=== PATIENT | female | born 1980 | race African-American/Black ===

== ENCOUNTER 2017-10-09 23:49 | Inpatient (IN) | payer OTHER ==
[~2017-10-09] VITALS: Ht 170.2 cm; Wt 69.9 kg
[~2017-10-09 23:49] MED LIST: BACTRIM DS TAB1 EAC1 ORAL; IBUPROFEN600 MG ORAL; NITROFURANTOIN100 M2 ORAL; NKM; NORCO 5-325 TA1 EACH PO; ONDANSETRON ODT4 MG ORAL; PRENAT; SLOW FE142 MG PO; VICODIN 5-5001 EACH PO
[2017-10-10] VITALS (9 sets, daily range): BP systolic 107–130; BP diastolic 72–92
[2017-10-10] MEDS ORDERED: Sodium Chloride 500ML 500 ML IV ONE (00:12)
[2017-10-10] MEDS ORDERED: levETIRAcetam 500 MG in D5W 110 ML IV ONE (00:15)
[2017-10-10 00:26] LABS: HEMATOCRIT 29.4 % (37.0-47.0); HEMOGLOBIN 8.8 G/DL (12.0-16.0); MEAN CORPUSCULAR VOLUME 75 FL (80-99); PLATELET COUNT 321 K/UL (150-450); RED BLOOD COUNT 3.93 M/UL (4.20-5.40); RED CELL DISTRIBUTION WIDTH 21.4 % (11.6-14.8); WHITE BLOOD COUNT 2.8 K/UL (4.8-10.8)
[2017-10-10 00:34] LABS: ANION GAP 11 mmol/L (5-15); BLOOD UREA NITROGEN 12 mg/dL (7-18); CALCIUM 8.3 MG/DL (8.5-10.1); CARBON DIOXIDE 24 MMOL/L (21-32); CHLORIDE 103 MMOL/L (98-107); CREATININE 0.7 MG/DL (0.55-1.30); POTASSIUM 3.1 MMOL/L (3.5-5.1); SODIUM 138 MMOL/L (136-145)
[2017-10-10 00:38] LABS: ALANINE AMINOTRANSFERASE 158 U/L (12-78); ALBUMIN 3.1 G/DL (3.4-5.0); ALBUMIN/GLOBULIN RATIO 0.7 (1.0-2.7); ALKALINE PHOSPHATASE 172 U/L (46-116); ASPARTATE AMINO TRANSFERASE 149 U/L (15-37); BILIRUBIN,TOTAL 0.3 MG/DL (0.2-1.0)
[2017-10-10] MEDS ORDERED: levETIRAcetam 500mg vial IV ONE (00:50)
[2017-10-10 01:36] LABS: APPEARANCE,URINE CLEAR; BILIRUBIN, URINE NEGATIVE (NEGATIVE); COLOR,URINE YELLOW; GLUCOSE, URINE (UA) NEGATIVE (NEGATIVE); KETONES,URINE NEGATIVE (NEGATIVE); LEUKOCYTE ESTERASE ,URINE NEGATIVE (NEGATIVE); NITRITE,URINE NEGATIVE (NEGATIVE); PH,URINE 6 (4.5-8.0); PROTEIN,URINE NEGATIVE (NEGATIVE); UROBILINOGEN,URINE 1 MG/DL (0.0-1.0)
--- NOTE | 2017-10-10 02:47 | Emergency Room Report ---
History of Present Illness General Chief Complaint: Seizure Source: Patient Present Illness HPI 36-year-old female presents to ED status post seizure. Patient had seizure on the street today. Bus stop. Witnessed. No head trauma. Patient has history of seizures and states she takes Keppra. Patient is lethargic upon arrival but is answer questions. States she is compliant with her medications. Denies any other medications. Denies any drug use. No other aggravating or relieving factors. Denies any other associated symptoms Allergies: Coded Allergies: TRAMADOL (Unverified Allergy, Unknown, 03/25/15) Uncoded Allergies: MORPHINE SULFATE (Adverse Reaction, Unknown, Hives, 10/12/17) ITCHING AND HIVES Patient History Past Medical History: seizures Past Surgical History: none Pertinent Family History: none Social History: Denies: smoking, alcohol use, drug use Last Menstrual Period: unk Now: No Immunizations: UTD Reviewed Nursing Documentation: PMH: Agreed, PSxH: Agreed Nursing Documentation-PMH Past Medical History: No History, Except For Hx Cardiac Problems: No Hx Cancer: No Hx Gastrointestinal Problems: Yes - Pancreatitis Hx Neurological Problems: No Hx Seizures: Yes Review of Systems All Other Systems: negative except mentioned in HPI Physical Exam Vital Signs Date Time Temp Pulse Resp B/P (MAP) Pulse Ox O2 Delivery O2 Flow Rate FiO2 10/09/17 23:50 98.2 115 16 122/72 97 Room Air Sp02 EP Interpretation: reviewed, normal General Appearance: GCS 15, non-toxic, lethargic Head: normocephalic Eyes: bilateral eye normal inspection, bilateral eye PERRL ENT: normal ENT inspection Neck: normal inspection Respiratory: chest non-tender, lungs clear, normal breath sounds, speaking full sentences Cardiovascular #1: regular rate, rhythm, no edema Gastrointestinal: normal bowel sounds, non tender, soft, non-distended, no guarding, no rebound Rectal: deferred Genitourinary: no CVA tenderness Musculoskeletal: normal inspection Neurologic: other - lethargic Psychiatric: other - lethargic Skin: normal inspection Lymphatic: normal inspection Medical Decision Making Diagnostic Impression: Primary Impression: Seizure ER Course Hospital Course 36-year-old F presents to ED status post seizure. Differential diagnosis includes- breakthrough seizure, alcohol abuse, noncompliance with medication Clinical course Patient placed on stretcher. Initial history and physical I ordered labs, IV fluids, CT brain Labs-electrolytes okay, leukocytosis noted, hemoglobin/hematocrit stable. CT Brain ok Given loading dose of Keppra. Given that patient is still altered I believe she should be admitted. Case discussed with Dr. Erazo and he agreed to accept the patient to his service for further care and support. i. I feel this is a highly complex case requiring extensive working including EKG/Rhythm strip, Xray/CT/US, Blood/urine lab work, repeat exams while in ED, and administration of strong opiates/narcotics for pain control, admission to hospital or close patient follow up. Diagnosis - seizure admitted to telemetry in serious condition Labs Test 10/10/17 00:00 10/10/17 01:00 White Blood Count 2.8 K/UL (4.8-10.8) Red Blood Count 3.93 M/UL (4.20-5.40) Hemoglobin 8.8 G/DL (12.0-16.0) Hematocrit 29.4 % (37.0-47.0) Mean Corpuscular Volume 75 FL (80-99) Mean Corpuscular Hemoglobin 22.4 PG (27.0-31.0) Mean Corpuscular Hemoglobin Concent 30.0 G/DL (32.0-36.0) Red Cell Distribution Width 21.4 % (11.6-14.8) Platelet Count 321 K/UL (150-450) Mean Platelet Volume 7.2 FL (6.5-10.1) Neutrophils (%) (Auto) % (45.0-75.0) Lymphocytes (%) (Auto) % (20.0-45.0) Monocytes (%) (Auto) % (1.0-10.0) Eosinophils (%) (Auto) % (0.0-3.0) Basophils (%) (Auto) % (0.0-2.0) Sodium Level 138 MMOL/L (136-145) Potassium Level 3.1 MMOL/L (3.5-5.1) Chloride Level 103 MMOL/L (98-107) Carbon Dioxide Level 24 MMOL/L (21-32) Anion Gap 11 mmol/L (5-15) Blood Urea Nitrogen 12 mg/dL (7-18) Creatinine 0.7 MG/DL (0.55-1.30) Estimat Glomerular Filtration Rate > 60 mL/min (>60) Glucose Level 126 MG/DL (74-106) Calcium Level 8.3 MG/DL (8.5-10.1) Total Bilirubin 0.3 MG/DL (0.2-1.0) Aspartate Amino Transf (AST/SGOT) 149 U/L (15-37) Alanine Aminotransferase (ALT/SGPT) 158 U/L (12-78) Alkaline Phosphatase 172 U/L (46-116) Total Protein 7.5 G/DL (6.4-8.2) Albumin 3.1 G/DL (3.4-5.0) Globulin 4.4 g/dL Albumin/Globulin Ratio 0.7 (1.0-2.7) Acetaminophen Level 23 MCG/ML (10-30) Serum Alcohol < 3 mg/dL Urine Color Yellow Urine Appearance Clear Urine pH 6 (4.5-8.0) Urine Specific [place] 1.020 (1.005-1.035) Urine Protein Negative (NEGATIVE) Urine Glucose (UA) Negative (NEGATIVE) Urine Ketones Negative (NEGATIVE) Urine Occult Blood Negative (NEGATIVE) Urine Nitrite Negative (NEGATIVE) Urine Bilirubin Negative (NEGATIVE) Urine Urobilinogen 1 MG/DL (0.0-1.0) Urine Leukocyte Esterase Negative (NEGATIVE) Urine HCG, Qualitative Negative Urine Opiates Screen Positive (NEGATIVE) Urine Barbiturates Screen Negative (NEGATIVE) Phencyclidine (PCP) Screen Negative (NEGATIVE) Urine Amphetamines Screen Negative (NEGATIVE) Urine Benzodiazepines Screen Negative (NEGATIVE) Urine Cocaine Screen Negative (NEGATIVE) Urine Marijuana (THC) Screen Positive (NEGATIVE) CT/MRI/US Diagnostic Results CT/MRI/US Diagnostic Results : Imaging Test Ordered: CT Head Impression no acute process Last Vital Signs Date Time Temp Pulse Resp B/P (MAP) Pulse Ox O2 Delivery O2 Flow Rate FiO2 10/09/17 23:50 98.2 115 16 122/72 97 Room Air Status: improved Disposition: ADMITTED INPATIENT Condition: Serious Referrals: [facility],REFERRING (PCP) ETHEL MAYA M.D. Oct 10, 2017 02:47
[2017-10-10] MEDS ORDERED: KEPPRA500 M4 ORAL (07:15)
[2017-10-10] MEDS ORDERED: Zolpidem 5mg tab ORAL PRN (09:00)
[2017-10-10] MEDS ORDERED: Miralax 17gm pkt ORAL PRN (09:00)
[2017-10-10] MEDS ORDERED: Mylanta II UD 30ml ORAL PRN (09:00)
[2017-10-10] MEDS ORDERED: LORazepam Inj 2mg/ml 1ml IV PRN (09:00)
--- NOTE | 2017-10-10 11:21 | Consultation ---
History of Present Illness General Date patient seen: Oct 10, 2017 Chief Complaint: Seizure Reason for Consultation: inpatient management Present Illness HPI 36-year-old female with hx of seizures, on Keppra presented to ED status post seizure. Patient had witnessed seizure on the street today at a bus stop. No head trauma. Patient was lethargic upon arrival in ER. States she is compliant with her medications. Denies any other medications. she is admitted to telemetry for further treatment. Allergies: Coded Allergies: TRAMADOL (Unverified Allergy, Unknown, 03/25/15) MORPHINE (Verified Adverse Reaction, Severe, NAUSEA/VOMITING, 05/16/12) Medication History Miscellaneous Medications Levetiracetam (Keppra), Unknown Dose ORAL, (Reported) Discontinued Medications Ferrous Sulfate* (Slow Fe*), 90 MG PO DAILY, (Reported) Discontinued Reason: Pt stopped taking med No Known Medications* (NKM - No Known Medications*), 0 ., (Reported) Discontinued Reason: Pt stopped taking med [prenat], (Reported) Discontinued Reason: Pt stopped taking med Patient History Healthcare decision maker Resuscitation status Advanced Directive on File Past Medical/Surgical History Past Medical/Surgical History: (1) Seizure Review of Systems Hematologic/Lymphatic: Reports: no symptoms Physical Exam General Appearance: WD/WN Lines, tubes and drains: central line, PICC HEENT: normocephalic, atraumatic Neck: non-tender, abnormal alignment Respiratory/Chest: chest wall non-tender, lungs clear Cardiovascular/Chest: normal peripheral pulses, normal rate Abdomen: normal bowel sounds Genitourinary/Rectal: normal genital exam Last 24 Hour Vital Signs Date Time Temp Pulse Resp B/P (MAP) Pulse Ox O2 Delivery O2 Flow Rate FiO2 10/10/17 09:00 97.3 87 18 129/76 95 Room Air 10/10/17 08:30 98.6 93 17 107/72 98 Room Air 10/10/17 07:27 98.6 93 17 107/72 98 Room Air 10/10/17 06:10 80 19 121/73 97 Room Air 10/10/17 04:10 81 18 119/81 97 Room Air 10/10/17 02:10 76 15 125/92 98 Room Air 10/10/17 00:10 115 16 Room Air 10/10/17 00:10 98.2 115 16 122/72 97 Room Air 10/09/17 23:50 98.2 115 16 122/72 97 Room Air Intake and Output 10/09/17 10/10/17 19:00 07:00 Intake Total 615 ml Balance 615 ml Intake Oral 0 ml IV Total 615 ml Laboratory Tests Test 10/10/17 00:00 10/10/17 01:00 White Blood Count 2.8 K/UL (4.8-10.8) L Red Blood Count 3.93 M/UL (4.20-5.40) L Hemoglobin 8.8 G/DL (12.0-16.0) L Hematocrit 29.4 % (37.0-47.0) L Mean Corpuscular Volume 75 FL (80-99) L Mean Corpuscular Hemoglobin 22.4 PG (27.0-31.0) L Mean Corpuscular Hemoglobin Concent 30.0 G/DL (32.0-36.0) L Red Cell Distribution Width 21.4 % (11.6-14.8) H Platelet Count 321 K/UL (150-450) Mean Platelet Volume 7.2 FL (6.5-10.1) Neutrophils (%) (Auto) % (45.0-75.0) Lymphocytes (%) (Auto) % (20.0-45.0) Monocytes (%) (Auto) % (1.0-10.0) Eosinophils (%) (Auto) % (0.0-3.0) Basophils (%) (Auto) % (0.0-2.0) Sodium Level 138 MMOL/L (136-145) Potassium Level 3.1 MMOL/L (3.5-5.1) L Chloride Level 103 MMOL/L (98-107) Carbon Dioxide Level 24 MMOL/L (21-32) Anion Gap 11 mmol/L (5-15) Blood Urea Nitrogen 12 mg/dL (7-18) Creatinine 0.7 MG/DL (0.55-1.30) Estimat Glomerular Filtration Rate > 60 mL/min (>60) Glucose Level 126 MG/DL (74-106) H Calcium Level 8.3 MG/DL (8.5-10.1) L Total Bilirubin 0.3 MG/DL (0.2-1.0) Aspartate Amino Transf (AST/SGOT) 149 U/L (15-37) H Alanine Aminotransferase (ALT/SGPT) 158 U/L (12-78) H Alkaline Phosphatase 172 U/L (46-116) H Total Protein 7.5 G/DL (6.4-8.2) Albumin 3.1 G/DL (3.4-5.0) L Globulin 4.4 g/dL Albumin/Globulin Ratio 0.7 (1.0-2.7) L Acetaminophen Level 23 MCG/ML (10-30) Serum Alcohol < 3 mg/dL Urine Color Yellow Urine Appearance Clear Urine pH 6 (4.5-8.0) Urine Specific [place] 1.020 (1.005-1.035) Urine Protein Negative (NEGATIVE) Urine Glucose (UA) Negative (NEGATIVE) Urine Ketones Negative (NEGATIVE) Urine Occult Blood Negative (NEGATIVE) Urine Nitrite Negative (NEGATIVE) Urine Bilirubin Negative (NEGATIVE) Urine Urobilinogen 1 MG/DL (0.0-1.0) H Urine Leukocyte Esterase Negative (NEGATIVE) Urine HCG, Qualitative Negative Urine Opiates Screen Positive (NEGATIVE) H Urine Barbiturates Screen Negative (NEGATIVE) Phencyclidine (PCP) Screen Negative (NEGATIVE) Urine Amphetamines Screen Negative (NEGATIVE) Urine Benzodiazepines Screen Negative (NEGATIVE) Urine Cocaine Screen Negative (NEGATIVE) Urine Marijuana (THC) Screen Positive (NEGATIVE) H Height (Feet): 5 Height (Inches): 7.00 Weight (Pounds): 130 Medications Current Medications Medications (Trade) Dose Ordered Sig/Sawyer Route PRN Reason Start Time Stop Time Status Last Admin Dose Admin Acetaminophen (Tylenol) 650 mg Q4H PRN ORAL fever 10/10/17 09:00 11/09/17 08:59 Al Hydroxide/Mg Hydroxide (Mylanta II) 30 ml Q6H PRN ORAL dyspepsia 10/10/17 09:00 11/09/17 08:59 Dextrose (Dextrose 50%) STAT PRN IV Hypoglycemia 10/10/17 09:00 11/09/17 08:59 Heparin Sodium (Porcine) (Heparin 5000 units/ml) 5,000 units EVERY 12 HOURS SUBQ 10/10/17 10:00 11/09/17 09:59 Lorazepam (Ativan 2mg/ml 1ml) 2 mg EVERY HOUR PRN IV seizures 10/10/17 09:00 10/17/17 08:59 Ondansetron HCl (Zofran) 4 mg Q6H PRN IVP Nausea & Vomiting 10/10/17 09:00 11/09/17 08:59 Polyethylene Glycol (Miralax) 17 gm HSPRN PRN ORAL Constipation 10/10/17 09:00 11/09/17 08:59 Zolpidem Tartrate (Ambien) 5 mg HSPRN PRN ORAL Insomnia 10/10/17 09:00 10/17/17 08:59 Assessment/Plan Problem List: (1) Epileptic seizure, generalized ICD Codes: G40.909 - Epilepsy, unspecified, not intractable, without status epilepticus SNOMED: 04869404 (2) Anemia ICD Codes: D64.9 - Anemia, unspecified SNOMED: 159638512 Assessment/Plan symptomatic treatment Neuro evaluation anemia w/u. STACI ESTRADA Oct 10, 2017 11:21
[2017-10-10] MEDS: Heparin 5000 units/ml inj SUBQ SCH ×2 (11:50→20:52)
--- NOTE | 2017-10-10 12:12 | Neurology Progress Note ---
Objective Physical Exam Last Vital Signs Date Time Temp Pulse Resp B/P (MAP) Pulse Ox O2 Delivery O2 Flow Rate FiO2 10/10/17 09:00 97.3 87 18 129/76 95 Room Air Laboratory Tests Test 10/10/17 00:00 10/10/17 01:00 White Blood Count 2.8 K/UL (4.8-10.8) L Red Blood Count 3.93 M/UL (4.20-5.40) L Hemoglobin 8.8 G/DL (12.0-16.0) L Hematocrit 29.4 % (37.0-47.0) L Mean Corpuscular Volume 75 FL (80-99) L Mean Corpuscular Hemoglobin 22.4 PG (27.0-31.0) L Mean Corpuscular Hemoglobin Concent 30.0 G/DL (32.0-36.0) L Red Cell Distribution Width 21.4 % (11.6-14.8) H Platelet Count 321 K/UL (150-450) Mean Platelet Volume 7.2 FL (6.5-10.1) Neutrophils (%) (Auto) % (45.0-75.0) Lymphocytes (%) (Auto) % (20.0-45.0) Monocytes (%) (Auto) % (1.0-10.0) Eosinophils (%) (Auto) % (0.0-3.0) Basophils (%) (Auto) % (0.0-2.0) Sodium Level 138 MMOL/L (136-145) Potassium Level 3.1 MMOL/L (3.5-5.1) L Chloride Level 103 MMOL/L (98-107) Carbon Dioxide Level 24 MMOL/L (21-32) Anion Gap 11 mmol/L (5-15) Blood Urea Nitrogen 12 mg/dL (7-18) Creatinine 0.7 MG/DL (0.55-1.30) Estimat Glomerular Filtration Rate > 60 mL/min (>60) Glucose Level 126 MG/DL (74-106) H Calcium Level 8.3 MG/DL (8.5-10.1) L Total Bilirubin 0.3 MG/DL (0.2-1.0) Aspartate Amino Transf (AST/SGOT) 149 U/L (15-37) H Alanine Aminotransferase (ALT/SGPT) 158 U/L (12-78) H Alkaline Phosphatase 172 U/L (46-116) H Total Protein 7.5 G/DL (6.4-8.2) Albumin 3.1 G/DL (3.4-5.0) L Globulin 4.4 g/dL Albumin/Globulin Ratio 0.7 (1.0-2.7) L Acetaminophen Level 23 MCG/ML (10-30) Serum Alcohol < 3 mg/dL Urine Color Yellow Urine Appearance Clear Urine pH 6 (4.5-8.0) Urine Specific [place] 1.020 (1.005-1.035) Urine Protein Negative (NEGATIVE) Urine Glucose (UA) Negative (NEGATIVE) Urine Ketones Negative (NEGATIVE) Urine Occult Blood Negative (NEGATIVE) Urine Nitrite Negative (NEGATIVE) Urine Bilirubin Negative (NEGATIVE) Urine Urobilinogen 1 MG/DL (0.0-1.0) H Urine Leukocyte Esterase Negative (NEGATIVE) Urine HCG, Qualitative Negative Urine Opiates Screen Positive (NEGATIVE) H Urine Barbiturates Screen Negative (NEGATIVE) Phencyclidine (PCP) Screen Negative (NEGATIVE) Urine Amphetamines Screen Negative (NEGATIVE) Urine Benzodiazepines Screen Negative (NEGATIVE) Urine Cocaine Screen Negative (NEGATIVE) Urine Marijuana (THC) Screen Positive (NEGATIVE) H Impression/Recommendations Recommendations #[id number] ELDON REGALADO Oct 10, 2017 12:12
--- NOTE | 2017-10-10 12:15 | Diagnostic Imaging Report ---
Indication: Reason For Exam: AMS Technique: Continuous helical CT scanning of the head was performed without intravenous contrast material. Axial and coronal 5 mm sections were generated. Radiation dose was minimized using automated exposure control Dose: Total Dose Length Product - DLP 1340.[address] Dose Index - CTDIvol(s) 70.38 mGy. Comparison: Findings: The ventricular system is normal in size and configuration. There is no shift of midline structures. No abnormal extra-axial fluid collections are noted. There is no evidence of intracerebral bleeding. No other abnormal high or low density areas are noted within the brain. Intact calvarium. The orbits and sinuses and mastoids are unremarkable. Impression: Normal CT scan of the head without contrast material. This agrees with the preliminary interpretation provided overnight by [facility] teleradiology service. The CT scanner at [facility] is accredited by the [employer] and the scans are performed using protocols designed to limit radiation exposure to as low as reasonably achievable to attain images of sufficient resolution adequate for diagnostic evaluation.
--- NOTE | 2017-10-10 17:30 | Consultation ---
DATE OF CONSULTATION: 10/10/2017 NEUROLOGICAL CONSULTATION CONSULTING PHYSICIAN: Drew Laboy M.D. REQUESTING PHYSICIAN: Stephan Erazo D.O. HISTORY OF PRESENT ILLNESS: The patient is a 36-year-old female, seen in neurological consultation to evaluate the exacerbation of seizures. According to the patient, the patient is known to have a chronic seizure disorder since approximately 2012, cause of the seizures never was established. The patient was now brought to emergency room after she was found to be seizing on a street at the bus stop. This was witnessed. She was brought by paramedics being lethargic, able to answer some questions. The patient insisted that she was compliant with her treatment. Her vital signs were stable, blood pressure 122/72, temperature 98.2 degrees, [place] Coma Scale was 15. Her initial laboratory studies included anemia with WBC 2.8, hemoglobin 8.8, low MCV and MCH. Chemistry panel, abnormal AST 139, ALT 158, and alkaline phosphatase is 172. Albumin 3.1. Elevated blood sugar 126 and potassium 3.1. Toxicology panel positive for marijuana and opiates and alcohol. Since admission until present, there was no further seizure activity. The patient's previous assessment in this facility was in 2015 when she also presented with exacerbation of seizures. At that time, the patient was on Keppra, Depakote, and Dilantin with her Depakote and Dilantin being subtherapeutic, which presumed to be presented with noncompliance. The patient now informs me that she has a history of alcohol abuse, which resulted in hepatitis and chronic pancreatitis. She developed chronic pain syndrome, opiate dependent, currently maintained on [place], oxycodone, and supplements of folate. She is on Keppra 1500 mg b.i.d. ALLERGIES: Morphine and tramadol. SOCIAL HISTORY: Now lives with her father. She is a smoker, but no illicit drug abuse. She is on social security, on disability. FAMILY HISTORY: Unavailable. REVIEW OF SYMPTOMS: Severe abdominal pain, generalized weakness. Denies headache or dizziness. No chest pain. No palpitations. No respiratory difficulties. Chronic severe low back pain. PHYSICAL EXAMINATION: GENERAL: A well-developed, well-nourished female, lying comfortably in bed, in mild distress indicating that she has pain in the right lower quadrant area. EXTREMITIES: Upper and lower extremities without clubbing, cyanosis, or edema. Peripheral pulses 1+ symmetric. MENTAL STATUS: She is alert and oriented x3. No evidence of aphasia or apraxia. Cognitive function normal. She is slow in responses, but repeatedly asked "give me something for the pain." CRANIAL NERVE II: Pupils both responding to light and accommodation. Extraocular movements intact. No nystagmus. CRANIAL NERVE V: Normal corneal responses. CRANIAL NERVE VII: No facial asymmetry. CRANIAL NERVE VIII: Normal hearing. CRANIAL NERVE IX THROUGH XII: Within normal limits. MOTOR EXAMINATION: Normal muscle tone. Strength 5/5 in all extremities. No involuntary movement. Deep tendon reflexes 1+ and symmetric with downgoing toes on both sides. SENSORY EXAM: Normal to pinprick. Gait not tested, but reportedly able to ambulate without assistance. IMPRESSION: 1. Chronic seizure disorder exacerbation. 2. Chronic pain syndrome, opiate dependent. 3. History of alcohol abuse. 4. Alcohol related hepatitis and chronic pancreatitis. RECOMMENDATION: 1. Pain management to address the issue of opiates. 2. Maintain Keppra 1500 mg b.i.d. Check level to assess compliance. If necessary, we will add additional anticonvulsant (not Depakote due to hepatotoxicity). 3. We will follow with you. Thank you for allowing me to see this interesting patient in neurological consultation. Drew Laboy M.D. DR: DEANNA JOB#: [id number] CC:
--- NOTE | 2017-10-10 19:31 | History and Physical Report ---
DATE OF ADMISSION: 10/10/2017 TIME: 1 p.m. CONSULTANTS: 1. Isaias Marie M.D. 2. Drew Laboy M.D. 3. Jason Mcgill M.D. CHIEF COMPLAINT: Seizure and abdominal pain postictal. BRIEF HISTORY: This is a 36-year-old female who lives at home, presents with history of seizure yesterday, last one previous was in July. The patient came into the ER, does not remember coming, was postictal, was confused and currently feeling better awake. No complaint. PAST MEDICAL HISTORY: Abdominal pain, pancreatitis and seizure. PAST SURGICAL HISTORY: Gastric bypass and gallbladder. MEDICATIONS: Keppra, Neurontin, heparin, dextrose, Mylanta, Ambien, Ativan, Zofran, MiraLAX and Tylenol. ALLERGIES: Tylenol, morphine, and tramadol. SOCIAL HISTORY: No smoking. No alcohol. Positive marijuana use. REVIEW OF SYSTEMS: No chest pain. No shortness of breath. No nausea, vomiting, or diarrhea. PHYSICAL EXAMINATION: GENERAL: Calm in bed, oriented x3, no acute distress. VITAL SIGNS: Temperature 97 degrees, pulse 87, respirations 18 and blood pressure 129/76. CARDIOVASCULAR: No murmur. LUNGS: Distant and clear. ABDOMEN: Bowel sounds positive. Soft, nontender, and nondistended. EXTREMITIES: No cyanosis, clubbing or edema. NEUROLOGIC: The patient moves all extremities, slightly weak. LABORATORY AND DIAGNOSTIC DATA: White count 2.8, hemoglobin and hematocrit 8.8/29 and platelets 321. BMP show potassium 3.3 and glucose 126. AST 149, ALT is 158 and alkaline phosphatase 172. Albumin of 3.1. Urinalysis is . Urine toxicology positive for opiates and marijuana. ASSESSMENT: 1. Seizure postictal. 2. Abdominal pain. 3. Chronic pancreatitis. 4. Elevated liver function test. 5. Leukopenia. 6. Anemia. PLAN: 1. Continue premedications. 2. Seizure. 3. Pain control. 4. OT/PT. 5. Dietary evaluation. 6. CBC and BMP in the morning. 7. Dr. Marie, Dr. Laboy, Dr. Mcgill, and Dr. Huerta to consult. Stephan Erazo D.O. DR: LION JOB#: [id number] CC:
[2017-10-10] MEDS: Morphine Sulfate 2mg/ml Inj IVP PRN (21:06)
[2017-10-11] VITALS: BP 135/79
--- NOTE | 2017-10-11 03:02 | Consultation ---
DATE OF CONSULTATION: 10/10/2017 NOTE: POOR AUDIO HEMATOLOGY/ONCOLOGY CONSULTATION CONSULTING PHYSICIAN: Hector Huerta M.D. REQUESTING PHYSICIAN: Stephan Erazo D.O. REASON FOR CONSULTATION: Evaluation of leukopenia and anemia. IDENTIFICATION DATA: Dear Dr. Stephan Erazo, The patient is a pleasant 36-year-old female with past medical history significant for seizure disorder, history of leukopenia, and history of anemia, presents at this time for seizure witnessed, has a history of seizure. She takes Keppra. Apparently, the patient has been compliant with her medications, noticed to have leukopenia, which has been chronic in duration. She had a CAT scan completed about two years ago that showed splenic calcification, otherwise no cirrhosis, no splenomegaly was noted. The patient is currently not bleeding, but hemoglobin was noted to be 8.8. Hematology Service was consulted for further evaluation of blood dyscrasias. PAST MEDICAL HISTORY: As noted above. PAST SURGICAL HISTORY: None noted. ALLERGIES: Morphine and tramadol. SOCIAL HISTORY: No alcohol, tobacco, or illicit drug use. REVIEW OF SYSTEMS: A 12-point review of systems completed.CONSTITUTIONAL: No fevers, chills, or night sweats. SKIN: No rashes, bumps, or itching. HEENT: No headache, hearing or vision changes. BREASTS: No lumps, pain, or discharge. PULMONARY: No cough, sputum, or shortness of breath. GASTROINTESTINAL: No nausea, vomiting, or diarrhea. GENITOURINARY: No dysuria, frequency, or urgency. MUSCULOSKELETAL: No joint swelling, muscle pain, or trauma. PHYSICAL EXAMINATION: VITAL SIGNS: Reviewed. GENERAL: No acute distress. PULMONARY: Decreased breath sounds. CARDIOVASCULAR: Regular rate. No S3 or S4. ABDOMEN: Soft, nontender, and nondistended. EXTREMITIES: No cyanosis, swelling, or edema. LABORATORY DATA: Labs, WBC 2.8, hemoglobin 8.8, hematocrit 29, MCV of 75, and platelet count 221,000. BUN 12, creatinine 0.7, and glucose 126. AST 129 and ALT 138. ASSESSMENT AND RECOMMENDATIONS: 1. Leukopenia, which has been chronic, potentially related to underlying medications versus history of benign neutropenia. Continue to closely monitor. I have ordered a hepatitis panel and human immunodeficiency virus. 2. Anemia due to underlying chronic disease. Continue to closely monitor. I have sent for anemia workup. The patient with microcytosis. 3. Status post seizure, seizure disorder, has been compliant. Continue to closely monitor. She has been seen by Neurology Service. 4. Weakness and fatigue, likely due to underlying seizure disorder as well as anemia. We will need to iron if necessary with ferritin as well. 5. Deep vein thrombosis prophylaxis with heparin. I appreciate the consultation. Hector Huerta M.D. DR: ZHANG JOB#: [id number] CC:
[2017-10-11] MEDS: Morphine Sulfate 2mg/ml Inj IVP PRN ×2 (03:40→10:05)
[2017-10-11 04:00] VITALS: BP 118/74
[2017-10-11 07:14] LABS: HEMATOCRIT 27.3 % (37.0-47.0); HEMOGLOBIN 8.6 G/DL (12.0-16.0); MEAN CORPUSCULAR VOLUME 74 FL (80-99); PLATELET COUNT 306 K/UL (150-450); RED BLOOD COUNT 3.68 M/UL (4.20-5.40); RED CELL DISTRIBUTION WIDTH 21.4 % (11.6-14.8); WHITE BLOOD COUNT 2.4 K/UL (4.8-10.8)
[2017-10-11 07:27] LABS: ALANINE AMINOTRANSFERASE 120 U/L (12-78); ALBUMIN 2.5 G/DL (3.4-5.0); ALBUMIN/GLOBULIN RATIO 0.6 (1.0-2.7); ALKALINE PHOSPHATASE 147 U/L (46-116); ANION GAP 7 mmol/L (5-15); ASPARTATE AMINO TRANSFERASE 122 U/L (15-37); BILIRUBIN,TOTAL 0.3 MG/DL (0.2-1.0); BLOOD UREA NITROGEN 7 mg/dL (7-18); CALCIUM 8.5 MG/DL (8.5-10.1); CARBON DIOXIDE 25 MMOL/L (21-32); CHLORIDE 106 MMOL/L (98-107); CREATININE 0.6 MG/DL (0.55-1.30); POTASSIUM 3.8 MMOL/L (3.5-5.1); SODIUM 138 MMOL/L (136-145)
[2017-10-11 08:00] VITALS: BP 124/87
[2017-10-11 08:50] LABS: % IRON SATURATION 3 % (15-50); IRON 13 ug/dL (50-175); LACTATE DEHYDROGENASE 202 U/L (81-234); TOTAL IRON BINDING CAPACITY 422 ug/dL (250-450)
[2017-10-11] MEDS: Heparin 5000 units/ml inj SUBQ SCH ×2 (09:06→21:21)
[2017-10-11 12:00] VITALS: BP 112/65
--- NOTE | 2017-10-11 12:09 | Neurology Progress Note ---
Interim History Interim History ROS Limited/Unobtainable: No Complaints: abd pain Events: no sz noted Objective Physical Exam Last Vital Signs Date Time Temp Pulse Resp B/P (MAP) Pulse Ox O2 Delivery O2 Flow Rate FiO2 10/11/17 08:00 97.9 84 20 124/87 96 Room Air Laboratory Tests Test 10/10/17 15:10 10/11/17 06:00 Hemoglobin A Pending Hemoglobin A2 Pending Hemoglobin C Pending Hemoglobin F () Pending Hemoglobin S Pending Variant Hemoglobin Pending Hemoglobin Electrophoresis Interp Pending Hemoglobin Interpretation Pending Hemoglobin Solubility Pending Soluble Transferrin Receptor Pending Ferritin 9 NG/ML (8-388) Methylmalonic Acid Pending Thyroid Stimulating Hormone (TSH) 0.652 uiU/mL (0.358-3.740) Levetiracetam (Keppra) Level Pending Hepatitis A IgM Antibody Negative (Negative) Hepatitis B Surface Antigen Negative (Negative) Hepatitis B Core IgM Antibody Negative (Negative) Hepatitis C Antibody >11.0 s/co ratio HIV (1&2) Antibody Rapid Negative (NEGATIVE) White Blood Count 2.4 K/UL (4.8-10.8) L Red Blood Count 3.68 M/UL (4.20-5.40) L Hemoglobin 8.6 G/DL (12.0-16.0) L Hematocrit 27.3 % (37.0-47.0) L Mean Corpuscular Volume 74 FL (80-99) L Mean Corpuscular Hemoglobin 23.4 PG (27.0-31.0) L Mean Corpuscular Hemoglobin Concent 31.4 G/DL (32.0-36.0) L Red Cell Distribution Width 21.4 % (11.6-14.8) H Platelet Count 306 K/UL (150-450) Mean Platelet Volume 7.9 FL (6.5-10.1) Neutrophils (%) (Auto) % (45.0-75.0) Lymphocytes (%) (Auto) % (20.0-45.0) Monocytes (%) (Auto) % (1.0-10.0) Eosinophils (%) (Auto) % (0.0-3.0) Basophils (%) (Auto) % (0.0-2.0) Differential Total Cells Counted 100 Neutrophils % (Manual) 12 % (45-75) L Lymphocytes % (Manual) 78 % (20-45) H Monocytes % (Manual) 8 % (1-10) Eosinophils % (Manual) 2 % (0-3) Basophils % (Manual) 0 % (0-2) Band Neutrophils 0 % (0-8) Platelet Estimate Adequate Platelet Morphology Normal Hypochromasia 1+ Anisocytosis 2+ Microcytosis 1+ Erythrocyte Sedimentation Rate 29 MM/HR (0-20) H Reticulocyte Count 0.7 % (0.0-2.0) Prothrombin Time 10.8 SEC (9.30-11.50) Prothromb Time International Ratio 1.0 (0.9-1.1) Activated Partial Thromboplast Time 28 SEC (23-33) Sodium Level 138 MMOL/L (136-145) Potassium Level 3.8 MMOL/L (3.5-5.1) Chloride Level 106 MMOL/L (98-107) Carbon Dioxide Level 25 MMOL/L (21-32) Anion Gap 7 mmol/L (5-15) Blood Urea Nitrogen 7 mg/dL (7-18) Creatinine 0.6 MG/DL (0.55-1.30) Estimat Glomerular Filtration Rate > 60 mL/min (>60) Glucose Level 82 MG/DL (74-106) Calcium Level 8.5 MG/DL (8.5-10.1) Iron Level 13 ug/dL (50-175) L Total Iron Binding Capacity 422 ug/dL (250-450) Percent Iron Saturation 3 % (15-50) L Unsaturated Iron Binding 409 ug/dL (112-346) H Total Bilirubin 0.3 MG/DL (0.2-1.0) Aspartate Amino Transf (AST/SGOT) 122 U/L (15-37) H Alanine Aminotransferase (ALT/SGPT) 120 U/L (12-78) H Alkaline Phosphatase 147 U/L (46-116) H Lactate Dehydrogenase 202 U/L (81-234) Total Protein 6.5 G/DL (6.4-8.2) Albumin 2.5 G/DL (3.4-5.0) L Globulin 4.0 g/dL Albumin/Globulin Ratio 0.6 (1.0-2.7) L Vitamin B12 Level 526 PG/ML (193-986) Folate 13.3 NG/ML (8.6-58.9) General: well developed, well nourished, other - abd pain Head: normocophalic, atraumatic Neck: no rigidity EENT: benign Neurologic Exam Mental Status: awake, alert, oriented x4, normal cognition, good mathematical skills, normal recent memory, normal remote memory, preserved visuospatial function Speech: normal speech, no dysarthia Language: normal language, no aphasia Cranial Nerve II: fundus normal, visual nagel, no papilledema Cranial Nerves III, IV, : PERRLA, EOMI, pupils Cranial Nerve V: normal facial sensations, temporales function normal, masseters function normal, pterygoids function normal Cranial Nerve VII: no facial asymmetry, normal facial expressions Cranial Nerve VIII: normal hearing, no nystagmus Cranial Nerve IX: normal palate elevation, gag response Cranial Nerve X: no voice hoarseness Cranial Nerve XI: SCM symmetric, trapezii function normal Cranial Nerve XII: tongue midline, no tongue atrophy/fasciculations Motor System: normal muscle tone, strength 5/5, no involuntary movement, no muscle wasting Sensory: normal pinprick, normal light touch, normal position sense, normal graphesthesia Coordination: normal finger to nose bilaterally, normal heel to arce bilaterally, negative Romberg test Deep Tendon Reflexes: 2+ bicep (L), 2+ bicep (R), 2+ tricep (L), 2+ tricep (R) , 2+ brachioradialis (L), 2+ brachioradialis (R), 2+ knee (L), 2+ knee (R), 2+ ankle (L), 2+ ankle (R) Reflexes: flexor plantar (L), flexor plantar (R) Stance: normal Gait: stable, normal regular, heel + toe gait Impression/Recommendations Problems: (1) Epileptic seizure, generalized (2) hepatitis C (3) Anemia (4) UTI (urinary tract infection) Status: stable Recommendations #[id number] kera 1500 bid neuro stable ELDON REGALADO Oct 11, 2017 12:09
--- NOTE | 2017-10-11 13:58 | General Progress Note ---
Assessment/Plan Problem List: (1) Abdominal pain ICD Codes: R10.9 - Unspecified abdominal pain SNOMED: 79145144 (2) Seizure ICD Codes: R56.9 - Unspecified convulsions SNOMED: 05480048 (3) Anemia ICD Codes: D64.9 - Anemia, unspecified SNOMED: 888368555 (4) Epileptic seizure, generalized ICD Codes: G40.909 - Epilepsy, unspecified, not intractable, without status epilepticus SNOMED: 58455484 (5) UTI (urinary tract infection) ICD Codes: N39.0 - Urinary tract infection, site not specified SNOMED: 35485490 (6) hepatitis C Status: unchanged Assessment/Plan ot pt diet pain and seizure control heme eval cbc bmp am Subjective Constitutional: Reports: weakness Allergies: Coded Allergies: TRAMADOL (Unverified Allergy, Unknown, 03/25/15) All Systems: reviewed and negative except above Subjective c/o mod abd pain no seizure Objective Last 24 Hour Vital Signs Date Time Temp Pulse Resp B/P (MAP) Pulse Ox O2 Delivery O2 Flow Rate FiO2 10/11/17 12:00 80 10/11/17 12:00 97.2 73 18 112/65 73 Room Air 10/11/17 08:00 86 10/11/17 08:00 97.9 84 20 124/87 96 Room Air 10/11/17 04:00 97.5 21 118/74 98 Room Air 10/11/17 04:00 78 10/11/17 00:00 86 10/11/17 00:00 98.0 94 20 135/79 100 Room Air 10/10/17 20:00 84 10/10/17 20:00 98.2 84 20 130/78 98 Room Air 10/10/17 16:00 98.0 91 18 120/78 96 Room Air 10/10/17 16:00 78 Intake and Output 10/10/17 10/11/17 19:00 07:00 Intake Total 120 ml 120 ml Output Total 0 ml 0 ml Balance 120 ml 120 ml Intake Oral 120 ml 120 ml Output Urine Total 0 ml 0 ml # Voids 1 Laboratory Tests 10/10/17 15:10: Hemoglobin A [Pending], Hemoglobin A2 [Pending], Hemoglobin C [Pending], Hemoglobin F () [Pending], Hemoglobin S [Pending], Variant Hemoglobin [ Pending], Hemoglobin Electrophoresis Interp [Pending], Hemoglobin Interpretation [Pending], Hemoglobin Solubility [Pending], Soluble Transferrin Receptor [Pending], Ferritin 9, Methylmalonic Acid [Pending], Thyroid Stimulating Hormone (TSH) 0.652, Levetiracetam (Keppra) Level [Pending], Hepatitis A IgM Antibody Negative, Hepatitis B Surface Antigen Negative, Hepatitis B Core IgM Antibody Negative, Hepatitis C Antibody >11.0H, HIV (1&2) Antibody Rapid Negative 10/11/17 06:00: White Blood Count 2.4L, Red Blood Count 3.68L, Hemoglobin 8.6L, Hematocrit 27.3L , Mean Corpuscular Volume 74L, Mean Corpuscular Hemoglobin 23.4L, Mean Corpuscular Hemoglobin Concent 31.4L, Red Cell Distribution Width 21.4H, Platelet Count 306, Mean Platelet Volume 7.9, Neutrophils (%) (Auto) , Lymphocytes (%) (Auto) , Monocytes (%) (Auto) , Eosinophils (%) (Auto) , Basophils (%) (Auto) , Differential Total Cells Counted 100, Neutrophils % ( Manual) 12L, Lymphocytes % (Manual) 78H, Monocytes % (Manual) 8, Eosinophils % ( Manual) 2, Basophils % (Manual) 0, Band Neutrophils 0, Platelet Estimate Adequate, Platelet Morphology Normal, Hypochromasia 1+, Anisocytosis 2+, Microcytosis 1+, Erythrocyte Sedimentation Rate 29H, Reticulocyte Count 0.7, Prothrombin Time 10.8, Prothromb Time International Ratio 1.0, Activated Partial Thromboplast Time 28, Sodium Level 138, Potassium Level 3.8, Chloride Level 106, Carbon Dioxide Level 25, Anion Gap 7, Blood Urea Nitrogen 7, Creatinine 0.6, Estimat Glomerular Filtration Rate > 60, Glucose Level 82, Calcium Level 8.5, Iron Level 13L, Total Iron Binding Capacity 422, Percent Iron Saturation 3L, Unsaturated Iron Binding 409H, Total Bilirubin 0.3, Aspartate Amino Transf (AST/SGOT) 122H, Alanine Aminotransferase (ALT/SGPT) 120H , Alkaline Phosphatase 147H, Lactate Dehydrogenase 202, Total Protein 6.5, Albumin 2.5L, Globulin 4.0, Albumin/Globulin Ratio 0.6L, Vitamin B12 Level 526, Folate 13.3 Height (Feet): 5 Height (Inches): 7.00 Weight (Pounds): 130 General Appearance: alert EENT: normal ENT inspection Neck: normal alignment Cardiovascular: normal peripheral pulses, normal rate, regular rhythm Respiratory/Chest: chest wall non-tender, lungs clear, normal breath sounds Abdomen: normal bowel sounds, non tender, soft Extremities: normal inspection Edema: no edema noted Arm (L), no edema noted Arm (R), no edema noted Leg (L), no edema noted Leg (R), no edema noted Pedal (L), no edema noted Pedal (R), no edema noted Generalized Neurologic: responsive, motor weakness Skin: normal pigmentation, warm/dry JAMAAL PEREZ Oct 11, 2017 13:57
[2017-10-11] MEDS ORDERED: Morphine Sulfate 4mg/ml Inj IVP PRN ×2 (14:15→16:45)
[2017-10-11] MEDS ORDERED: KEPPRA500 M3 ORAL (15:53)
[2017-10-11] MEDS ORDERED: NEURONTIN300 MG ORAL (15:53)
[2017-10-11 16:00] VITALS: BP 142/91
--- NOTE | 2017-10-11 17:00 | Pulmonology Progress Note ---
Assessment/Plan Problems: (1) Epileptic seizure, generalized (2) Anemia (3) Abdominal pain (4) hepatitis C Assessment/Plan med/surg GI evaluation seizures are controlled Subjective ROS Limited/Unobtainable: No Constitutional: Reports: no symptoms HEENT: Repors: no symptoms Respiratory: Reports: no symptoms Allergies: Coded Allergies: TRAMADOL (Unverified Allergy, Unknown, 03/25/15) Objective Last 24 Hour Vital Signs Date Time Temp Pulse Resp B/P (MAP) Pulse Ox O2 Delivery O2 Flow Rate FiO2 10/11/17 12:00 80 10/11/17 12:00 97.2 73 18 112/65 73 Room Air 10/11/17 08:00 86 10/11/17 08:00 97.9 84 20 124/87 96 Room Air 10/11/17 04:00 97.5 21 118/74 98 Room Air 10/11/17 04:00 78 10/11/17 00:00 86 10/11/17 00:00 98.0 94 20 135/79 100 Room Air 10/10/17 20:00 84 10/10/17 20:00 98.2 84 20 130/78 98 Room Air Intake and Output 10/10/17 10/11/17 19:00 07:00 Intake Total 120 ml 120 ml Output Total 0 ml 0 ml Balance 120 ml 120 ml Intake Oral 120 ml 120 ml Output Urine Total 0 ml 0 ml # Voids 1 Objective General Appearance: WD/WN, mil HEENT: normocephalic, atraumatic Neck: normal alignment, supple Respiratory/Chest: chest wall non-tender, lungs clear Cardiovascular/Chest: normal peripheral pulses, normal rate Abdomen: normal bowel sounds, non tender Genitourinary/Rectal: normal genital exam Extremities: normal range of motion, Laboratory Tests 10/11/17 06:00: White Blood Count 2.4L, Red Blood Count 3.68L, Hemoglobin 8.6L, Hematocrit 27.3L , Mean Corpuscular Volume 74L, Mean Corpuscular Hemoglobin 23.4L, Mean Corpuscular Hemoglobin Concent 31.4L, Red Cell Distribution Width 21.4H, Platelet Count 306, Mean Platelet Volume 7.9, Neutrophils (%) (Auto) , Lymphocytes (%) (Auto) , Monocytes (%) (Auto) , Eosinophils (%) (Auto) , Basophils (%) (Auto) , Differential Total Cells Counted 100, Neutrophils % ( Manual) 12L, Lymphocytes % (Manual) 78H, Monocytes % (Manual) 8, Eosinophils % ( Manual) 2, Basophils % (Manual) 0, Band Neutrophils 0, Platelet Estimate Adequate, Platelet Morphology Normal, Hypochromasia 1+, Anisocytosis 2+, Microcytosis 1+, Erythrocyte Sedimentation Rate 29H, Reticulocyte Count 0.7, Prothrombin Time 10.8, Prothromb Time International Ratio 1.0, Activated Partial Thromboplast Time 28, Sodium Level 138, Potassium Level 3.8, Chloride Level 106, Carbon Dioxide Level 25, Anion Gap 7, Blood Urea Nitrogen 7, Creatinine 0.6, Estimat Glomerular Filtration Rate > 60, Glucose Level 82, Calcium Level 8.5, Iron Level 13L, Total Iron Binding Capacity 422, Percent Iron Saturation 3L, Unsaturated Iron Binding 409H, Total Bilirubin 0.3, Aspartate Amino Transf (AST/SGOT) 122H, Alanine Aminotransferase (ALT/SGPT) 120H , Alkaline Phosphatase 147H, Lactate Dehydrogenase 202, Total Protein 6.5, Albumin 2.5L, Globulin 4.0, Albumin/Globulin Ratio 0.6L, Vitamin B12 Level 526, Folate 13.3 Current Medications Medications (Trade) Dose Ordered Sig/Sawyer Route PRN Reason Start Time Stop Time Status Last Admin Dose Admin Acetaminophen (Tylenol) 650 mg Q4H PRN ORAL fever 10/10/17 09:00 11/09/17 08:59 Al Hydroxide/Mg Hydroxide (Mylanta II) 30 ml Q6H PRN ORAL dyspepsia 10/10/17 09:00 11/09/17 08:59 Dextrose (Dextrose 50%) STAT PRN IV Hypoglycemia 10/10/17 09:00 11/09/17 08:59 Gabapentin (Neurontin) 300 mg Q12HR ORAL 10/10/17 12:30 11/09/17 12:29 10/11/17 09:04 Heparin Sodium (Porcine) (Heparin 5000 units/ml) 5,000 units EVERY 12 HOURS SUBQ 10/10/17 10:00 11/09/17 09:59 10/11/17 09:06 Iron Sucrose 100 mg/Sodium Chloride 60 ml @ 240 mls/hr BEDTIME IV 10/11/17 21:00 10/13/17 21:14 Levetiracetam (Keppra) 1,500 mg Q12HR ORAL 10/10/17 12:30 11/09/17 12:29 10/11/17 09:04 Lorazepam (Ativan 2mg/ml 1ml) 2 mg EVERY HOUR PRN IV seizures 10/10/17 09:00 10/17/17 08:59 10/10/17 12:03 Morphine Sulfate (Morphine Sulfate) 3 mg Q3H PRN IVP Severe Pain (Pain Scale 7-10) 10/11/17 16:45 10/18/17 16:44 Ondansetron HCl (Zofran) 4 mg Q6H PRN IVP Nausea & Vomiting 10/10/17 09:00 11/09/17 08:59 Polyethylene Glycol (Miralax) 17 gm HSPRN PRN ORAL Constipation 10/10/17 09:00 11/09/17 08:59 Zolpidem Tartrate (Ambien) 5 mg HSPRN PRN ORAL Insomnia 10/10/17 09:00 10/17/17 08:59 STACI ESTRADA Oct 11, 2017 17:00
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
--- NOTE | 2017-10-11 18:02 | Cardiology Report ---
APPROVED REPORT EKG Measurement Heart [id number] [id number] Normal sinus rhythm Normal ECG
[2017-10-11 20:00] VITALS: BP 149/68
[2017-10-11] MEDS ORDERED: Miralax 17gm pkt ORAL PRN (20:30)
[2017-10-11] MEDS ORDERED: Zolpidem 5mg tab ORAL PRN (20:30)
[2017-10-11] MEDS ORDERED: Mylanta II UD 30ml ORAL PRN (21:00)
[2017-10-11] MEDS ORDERED: LORazepam Inj 2mg/ml 1ml IV PRN (21:00)
[2017-10-11] MEDS ORDERED: Iron Sucrose 100 MG in NS 55 ML IV SCH (21:00)
[2017-10-11] MEDS: Morphine Sulfate 4mg/ml Inj IVP PRN (21:15)
[2017-10-11] MEDS: Iron Sucrose 100 MG in NS 55 ML IV SCH (22:14)
[2017-10-12] VITALS: BP 147/88
--- NOTE | 2017-10-12 00:14 | General Progress Note ---
Assessment/Plan Assessment/Plan 1. Leukopenia, which has been chronic, potentially related to underlying medications versus history of benign neutropenia. --> Continue to closely monitor. --> I have ordered a hepatitis panel and human immunodeficiency virus. --> Hep C detected. Start treatment of antiretrovirals. 2. Anemia due to underlying chronic disease. --> Continue to closely monitor. --> Anemia workup reviewed. The patient with microcytosis. --> Begin Pt on Iron. 3. Status post seizure, seizure disorder, has been compliant. --> Continue to closely monitor. She has been seen by Neurology Service. 4. Weakness and fatigue, likely due to underlying seizure disorder as well as anemia. --> We will need to start iron if necessary with ferritin as well. 5. Deep vein thrombosis prophylaxis with heparin. Subjective Date patient seen: Oct 11, 2017 Constitutional: Denies: no symptoms, chills, diaphoresis, fever, malaise, weakness, other HEENT: Denies: no symptoms, eye pain, blurred vision, tearing, double vision, ear pain, ear discharge, nose pain, nose congestion, throat pain, throat swelling, mouth pain, mouth swelling, other Cardiovascular: Denies: no symptoms, chest pain, edema, irregular heart rate, lightheadedness, palpitations, syncope, other Respiratory: Denies: no symptoms, cough, orthopnea, shortness of breath, SOB with excertion, SOB at rest, sputum, stridor, wheezing, other Gastrointestinal/Abdominal: Denies: no symptoms, abdomen distended, abdominal pain, black stools, tarry stools, blood in stool, constipated, diarrhea, difficulty swallowing, nausea, poor appetite, poor fluid intake, rectal bleeding , vomiting, other Genitourinary: Denies: no symptoms, burning, discharge, frequency, flank pain, hematuria, incontinence, pain, urgency, other Allergies: Coded Allergies: TRAMADOL (Unverified Allergy, Unknown, 03/25/15) Subjective wbc count low. No fever or chills. Objective Last 24 Hour Vital Signs Date Time Temp Pulse Resp B/P (MAP) Pulse Ox O2 Delivery O2 Flow Rate FiO2 10/11/17 20:00 97.5 77 20 149/68 100 Room Air 10/11/17 16:00 80 10/11/17 16:00 98.1 67 20 142/91 97 Room Air 10/11/17 12:00 97.2 73 18 112/65 95 Room Air 10/11/17 12:00 80 10/11/17 08:00 86 10/11/17 08:00 97.9 84 20 124/87 96 Room Air 10/11/17 04:00 97.5 21 118/74 98 Room Air 10/11/17 04:00 78 Intake and Output 10/11/17 10/12/17 19:00 07:00 Intake Total 480 ml Balance 480 ml Intake Oral 480 ml # Voids 4 Laboratory Tests 10/11/17 06:00: White Blood Count 2.4L, Red Blood Count 3.68L, Hemoglobin 8.6L, Hematocrit 27.3L , Mean Corpuscular Volume 74L, Mean Corpuscular Hemoglobin 23.4L, Mean Corpuscular Hemoglobin Concent 31.4L, Red Cell Distribution Width 21.4H, Platelet Count 306, Mean Platelet Volume 7.9, Neutrophils (%) (Auto) , Lymphocytes (%) (Auto) , Monocytes (%) (Auto) , Eosinophils (%) (Auto) , Basophils (%) (Auto) , Differential Total Cells Counted 100, Neutrophils % ( Manual) 12L, Lymphocytes % (Manual) 78H, Monocytes % (Manual) 8, Eosinophils % ( Manual) 2, Basophils % (Manual) 0, Band Neutrophils 0, Platelet Estimate Adequate, Platelet Morphology Normal, Hypochromasia 1+, Anisocytosis 2+, Microcytosis 1+, Erythrocyte Sedimentation Rate 29H, Reticulocyte Count 0.7, Prothrombin Time 10.8, Prothromb Time International Ratio 1.0, Activated Partial Thromboplast Time 28, Sodium Level 138, Potassium Level 3.8, Chloride Level 106, Carbon Dioxide Level 25, Anion Gap 7, Blood Urea Nitrogen 7, Creatinine 0.6, Estimat Glomerular Filtration Rate > 60, Glucose Level 82, Calcium Level 8.5, Iron Level 13L, Total Iron Binding Capacity 422, Percent Iron Saturation 3L, Unsaturated Iron Binding 409H, Total Bilirubin 0.3, Aspartate Amino Transf (AST/SGOT) 122H, Alanine Aminotransferase (ALT/SGPT) 120H , Alkaline Phosphatase 147H, Lactate Dehydrogenase 202, Total Protein 6.5, Albumin 2.5L, Globulin 4.0, Albumin/Globulin Ratio 0.6L, Vitamin B12 Level 526, Folate 13.3 Height (Feet): 5 Height (Inches): 7.00 Weight (Pounds): 130 Hector Huerta Oct 12, 2017 00:14
[2017-10-12] MEDS: Morphine Sulfate 4mg/ml Inj IVP PRN (00:56)
[2017-10-12 04:00] VITALS: BP 129/78
[2017-10-12] MEDS ORDERED: DiphenhydrAMINE 50mg/ml Inj IVP PRN (04:00)
[2017-10-12 07:19] LABS: HEMATOCRIT 29.8 % (37.0-47.0); HEMOGLOBIN 9.2 G/DL (12.0-16.0); MEAN CORPUSCULAR VOLUME 73 FL (80-99); PLATELET COUNT 297 K/UL (150-450); RED BLOOD COUNT 4.06 M/UL (4.20-5.40); RED CELL DISTRIBUTION WIDTH 21.2 % (11.6-14.8); WHITE BLOOD COUNT 3.2 K/UL (4.8-10.8)
[2017-10-12 07:47] LABS: ALANINE AMINOTRANSFERASE 128 U/L (12-78); ALBUMIN 2.8 G/DL (3.4-5.0); ALBUMIN/GLOBULIN RATIO 0.7 (1.0-2.7); ALKALINE PHOSPHATASE 150 U/L (46-116); ANION GAP 6 mmol/L (5-15); ASPARTATE AMINO TRANSFERASE 161 U/L (15-37); BILIRUBIN,TOTAL 0.3 MG/DL (0.2-1.0); BLOOD UREA NITROGEN 9 mg/dL (7-18); CALCIUM 8.7 MG/DL (8.5-10.1); CARBON DIOXIDE 28 MMOL/L (21-32); CHLORIDE 105 MMOL/L (98-107); CREATININE 0.7 MG/DL (0.55-1.30); POTASSIUM 3.5 MMOL/L (3.5-5.1); SODIUM 139 MMOL/L (136-145)
[2017-10-12 08:00] VITALS: BP 134/81
[2017-10-12] MEDS: Norco 5mg/325mg tab ORAL PRN ×4 (08:20→20:34)
[2017-10-12] MEDS: Heparin 5000 units/ml inj SUBQ SCH ×2 (08:24→20:40)
--- NOTE | 2017-10-12 10:55 | Diagnostic Imaging Report ---
Indication: Abdominal pain, increased liver function tests Technique: Davenport-scale and duplex images of the upper abdomen were obtained Comparison: none. Reference made to CT abdomen 03/17/2013 Findings: Gallbladder is surgically absent. Common bile duct measures 3 mm in diameter. No intrahepatic biliary ductal dilatation. Liver demonstrates normal echogenicity, no focal abnormality. Portal vein and hepatic veins are patent. Pancreas is unremarkable. Spleen is unremarkable. Left kidney measures 11.8 cm in length. Right kidney measures 11.7 cm length. Both kidneys demonstrate normal echogenicity. There is no hydronephrosis. Echogenic focus is seen in the right renal sinus . Non-aneurysmal abdominal aorta . Impression: Surgically absent gallbladder. Negative for dilated ducts Echogenic focus in the right renal sinus, nonobstructive calculus versus artifact
--- NOTE | 2017-10-12 11:04 | GI Progress Note ---
Assessment/Plan Problems: (1) hepatitis C (2) Abdominal pain ICD Codes: R10.9 - Unspecified abdominal pain SNOMED: 71064993 (3) Anemia ICD Codes: D64.9 - Anemia, unspecified SNOMED: 927329362 Status: progressing Status Narrative Discussed with Dr. Mcgill. Assessment/Plan abdominal U/S reviewed >> Negative for dilated ducts hepatitis C positive >> outpatient tx iron deficiency >> venofer utox positive >> marijuana adv to regular diet OB stool r/o GI bleed monitor H&H, prn transfusions bowel regime ppi fu labs, LFTs Subjective Gastrointestinal/Abdominal: Reports: abdominal pain Objective Last 24 Hour Vital Signs Date Time Temp Pulse Resp B/P (MAP) Pulse Ox O2 Delivery O2 Flow Rate FiO2 10/12/17 08:00 97.7 65 20 134/81 98 Room Air 10/12/17 04:00 97.9 75 19 129/78 96 Room Air 10/12/17 00:00 98.4 82 19 147/88 98 Room Air 10/11/17 20:00 97.5 77 20 149/68 100 Room Air 10/11/17 20:00 Room Air 10/11/17 16:00 80 10/11/17 16:00 98.1 67 20 142/91 97 Room Air 10/11/17 12:00 97.2 73 18 112/65 95 Room Air 10/11/17 12:00 80 Intake and Output 10/11/17 10/12/17 19:00 07:00 Intake Total 480 ml 480 ml Balance 480 ml 480 ml Intake Oral 480 ml 480 ml # Voids 4 2 Laboratory Tests Test 10/12/17 06:35 White Blood Count 3.2 K/UL (4.8-10.8) L Red Blood Count 4.06 M/UL (4.20-5.40) L Hemoglobin 9.2 G/DL (12.0-16.0) L Hematocrit 29.8 % (37.0-47.0) L Mean Corpuscular Volume 73 FL (80-99) L Mean Corpuscular Hemoglobin 22.7 PG (27.0-31.0) L Mean Corpuscular Hemoglobin Concent 31.0 G/DL (32.0-36.0) L Red Cell Distribution Width 21.2 % (11.6-14.8) H Platelet Count 297 K/UL (150-450) Mean Platelet Volume 7.3 FL (6.5-10.1) Neutrophils (%) (Auto) % (45.0-75.0) Lymphocytes (%) (Auto) % (20.0-45.0) Monocytes (%) (Auto) % (1.0-10.0) Eosinophils (%) (Auto) % (0.0-3.0) Basophils (%) (Auto) % (0.0-2.0) Differential Total Cells Counted 100 Neutrophils % (Manual) 20 % (45-75) L Lymphocytes % (Manual) 67 % (20-45) H Monocytes % (Manual) 10 % (1-10) Eosinophils % (Manual) 3 % (0-3) Basophils % (Manual) 0 % (0-2) Band Neutrophils 0 % (0-8) Platelet Estimate Adequate Platelet Morphology Normal Hypochromasia 1+ Anisocytosis 2+ Microcytosis 1+ Sodium Level 139 MMOL/L (136-145) Potassium Level 3.5 MMOL/L (3.5-5.1) Chloride Level 105 MMOL/L (98-107) Carbon Dioxide Level 28 MMOL/L (21-32) Anion Gap 6 mmol/L (5-15) Blood Urea Nitrogen 9 mg/dL (7-18) Creatinine 0.7 MG/DL (0.55-1.30) Estimat Glomerular Filtration Rate > 60 mL/min (>60) Glucose Level 89 MG/DL (74-106) Calcium Level 8.7 MG/DL (8.5-10.1) Total Bilirubin 0.3 MG/DL (0.2-1.0) Aspartate Amino Transf (AST/SGOT) 161 U/L (15-37) H Alanine Aminotransferase (ALT/SGPT) 128 U/L (12-78) H Alkaline Phosphatase 150 U/L (46-116) H Total Protein 7.0 G/DL (6.4-8.2) Albumin 2.8 G/DL (3.4-5.0) L Globulin 4.2 g/dL Albumin/Globulin Ratio 0.7 (1.0-2.7) L Height (Feet): 5 Height (Inches): 7.00 Weight (Pounds): 130 General Appearance: WD/WN, no apparent distress, alert, overweight Cardiovascular: normal rate Respiratory/Chest: normal breath sounds, no respiratory distress Abdominal Exam: normal bowel sounds, non tender, soft Extremities: normal range of motion, non-tender Yesica Michele N.P. Oct 12, 2017 11:04
[2017-10-12 12:00] VITALS: BP 116/74
--- NOTE | 2017-10-12 12:14 | General Progress Note ---
Assessment/Plan Problem List: (1) Abdominal pain ICD Codes: R10.9 - Unspecified abdominal pain SNOMED: 35047963 (2) Seizure ICD Codes: R56.9 - Unspecified convulsions SNOMED: 60272371 (3) Anemia ICD Codes: D64.9 - Anemia, unspecified SNOMED: 705919806 (4) Epileptic seizure, generalized ICD Codes: G40.909 - Epilepsy, unspecified, not intractable, without status epilepticus SNOMED: 39022292 (5) UTI (urinary tract infection) ICD Codes: N39.0 - Urinary tract infection, site not specified SNOMED: 89378957 (6) hepatitis C Status: stable, progressing, tolerating diet Assessment/Plan ot pt diet pain and seizure control heme eval cbc bmp am dc if clear Subjective Constitutional: Reports: weakness Allergies: Coded Allergies: TRAMADOL (Unverified Allergy, Unknown, 03/25/15) Uncoded Allergies: MORPHINE SULFATE (Adverse Reaction, Unknown, Hives, 10/12/17) ITCHING AND HIVES All Systems: reviewed and negative except above Subjective c/o sl abd pain no seizure Objective Last 24 Hour Vital Signs Date Time Temp Pulse Resp B/P (MAP) Pulse Ox O2 Delivery O2 Flow Rate FiO2 10/12/17 08:00 97.7 65 20 134/81 98 Room Air 10/12/17 04:00 97.9 75 19 129/78 96 Room Air 10/12/17 00:00 98.4 82 19 147/88 98 Room Air 10/11/17 20:00 97.5 77 20 149/68 100 Room Air 10/11/17 20:00 Room Air 10/11/17 16:00 80 10/11/17 16:00 98.1 67 20 142/91 97 Room Air Intake and Output 10/11/17 10/12/17 19:00 07:00 Intake Total 480 ml 480 ml Balance 480 ml 480 ml Intake Oral 480 ml 480 ml # Voids 4 2 Laboratory Tests 10/12/17 06:35: White Blood Count 3.2L, Red Blood Count 4.06L, Hemoglobin 9.2L, Hematocrit 29.8L , Mean Corpuscular Volume 73L, Mean Corpuscular Hemoglobin 22.7L, Mean Corpuscular Hemoglobin Concent 31.0L, Red Cell Distribution Width 21.2H, Platelet Count 297, Mean Platelet Volume 7.3, Neutrophils (%) (Auto) , Lymphocytes (%) (Auto) , Monocytes (%) (Auto) , Eosinophils (%) (Auto) , Basophils (%) (Auto) , Differential Total Cells Counted 100, Neutrophils % ( Manual) 20L, Lymphocytes % (Manual) 67H, Monocytes % (Manual) 10, Eosinophils % (Manual) 3, Basophils % (Manual) 0, Band Neutrophils 0, Platelet Estimate Adequate, Platelet Morphology Normal, Hypochromasia 1+, Anisocytosis 2+, Microcytosis 1+, Sodium Level 139, Potassium Level 3.5, Chloride Level 105, Carbon Dioxide Level 28, Anion Gap 6, Blood Urea Nitrogen 9, Creatinine 0.7, Estimat Glomerular Filtration Rate > 60, Glucose Level 89, Calcium Level 8.7, Total Bilirubin 0.3, Aspartate Amino Transf (AST/SGOT) 161H, Alanine Aminotransferase (ALT/SGPT) 128H, Alkaline Phosphatase 150H, Total Protein 7.0, Albumin 2.8L, Globulin 4.2, Albumin/Globulin Ratio 0.7L Height (Feet): 5 Height (Inches): 7.00 Weight (Pounds): 130 General Appearance: alert EENT: normal ENT inspection Neck: normal alignment Cardiovascular: normal peripheral pulses, normal rate, regular rhythm Respiratory/Chest: chest wall non-tender, lungs clear, normal breath sounds Abdomen: normal bowel sounds, non tender, soft Extremities: normal inspection Edema: no edema noted Arm (L), no edema noted Arm (R), no edema noted Leg (L), no edema noted Leg (R), no edema noted Pedal (L), no edema noted Pedal (R), no edema noted Generalized Neurologic: responsive, motor weakness Skin: normal pigmentation, warm/dry JAMAAL PEREZ Oct 12, 2017 12:14
[2017-10-12 16:00] VITALS: BP 136/90
[2017-10-12 20:00] VITALS: BP 128/80
[2017-10-12] MEDS: Iron Sucrose 100 MG in NS 55 ML IV SCH (20:33)
--- NOTE | 2017-10-12 23:22 | Pulmonology Progress Note ---
Assessment/Plan Problems: (1) Epileptic seizure, generalized (2) Anemia (3) Abdominal pain (4) hepatitis C Assessment/Plan med/surg GI evaluation seizures are controlled iron iv anemai w/u in progress Subjective ROS Limited/Unobtainable: No Allergies: Coded Allergies: TRAMADOL (Unverified Allergy, Unknown, 03/25/15) Uncoded Allergies: MORPHINE SULFATE (Adverse Reaction, Unknown, Hives, 10/12/17) ITCHING AND HIVES Objective Last 24 Hour Vital Signs Date Time Temp Pulse Resp B/P (MAP) Pulse Ox O2 Delivery O2 Flow Rate FiO2 10/12/17 16:00 98.2 68 20 136/90 99 Room Air 10/12/17 12:00 98.2 68 20 116/74 99 Room Air 10/12/17 08:00 97.7 65 20 134/81 98 Room Air 10/12/17 04:00 97.9 75 19 129/78 96 Room Air 10/12/17 00:00 98.4 82 19 147/88 98 Room Air Intake and Output 10/11/17 10/12/17 19:00 07:00 Intake Total 480 ml 480 ml Balance 480 ml 480 ml Intake Oral 480 ml 480 ml # Voids 4 2 Objective General Appearance: WD/WN, mil HEENT: normocephalic, atraumatic Neck: normal alignment, supple Respiratory/Chest: chest wall non-tender, lungs clear Cardiovascular/Chest: normal peripheral pulses, normal rate Abdomen: normal bowel sounds, non tender Genitourinary/Rectal: normal genital exam Extremities: normal range of motion, Laboratory Tests 10/12/17 06:35: White Blood Count 3.2L, Red Blood Count 4.06L, Hemoglobin 9.2L, Hematocrit 29.8L , Mean Corpuscular Volume 73L, Mean Corpuscular Hemoglobin 22.7L, Mean Corpuscular Hemoglobin Concent 31.0L, Red Cell Distribution Width 21.2H, Platelet Count 297, Mean Platelet Volume 7.3, Neutrophils (%) (Auto) , Lymphocytes (%) (Auto) , Monocytes (%) (Auto) , Eosinophils (%) (Auto) , Basophils (%) (Auto) , Differential Total Cells Counted 100, Neutrophils % ( Manual) 20L, Lymphocytes % (Manual) 67H, Monocytes % (Manual) 10, Eosinophils % (Manual) 3, Basophils % (Manual) 0, Band Neutrophils 0, Platelet Estimate Adequate, Platelet Morphology Normal, Hypochromasia 1+, Anisocytosis 2+, Microcytosis 1+, Sodium Level 139, Potassium Level 3.5, Chloride Level 105, Carbon Dioxide Level 28, Anion Gap 6, Blood Urea Nitrogen 9, Creatinine 0.7, Estimat Glomerular Filtration Rate > 60, Glucose Level 89, Calcium Level 8.7, Total Bilirubin 0.3, Aspartate Amino Transf (AST/SGOT) 161H, Alanine Aminotransferase (ALT/SGPT) 128H, Alkaline Phosphatase 150H, Total Protein 7.0, Albumin 2.8L, Globulin 4.2, Albumin/Globulin Ratio 0.7L Current Medications Medications (Trade) Dose Ordered Sig/Sawyer Route PRN Reason Start Time Stop Time Status Last Admin Dose Admin Acetaminophen (Tylenol) 650 mg Q4H PRN ORAL fever 10/11/17 21:00 11/09/17 08:59 Acetaminophen/ Hydrocodone Bitart ([place] 10/325) 1 tab Q4H PRN ORAL For Pain 10/12/17 23:00 10/19/17 22:59 UNV Al Hydroxide/Mg Hydroxide (Mylanta II) 30 ml Q6H PRN ORAL dyspepsia 10/11/17 21:00 11/09/17 08:59 Dextrose (Dextrose 50%) STAT PRN IV Hypoglycemia 10/11/17 21:00 11/10/17 20:59 Diphenhydramine HCl (Benadryl) 25 mg Q6H PRN ORAL Itching 10/12/17 04:00 11/11/17 03:59 10/12/17 04:19 Gabapentin (Neurontin) 300 mg Q12HR ORAL 10/11/17 21:00 11/09/17 12:29 10/12/17 20:33 Heparin Sodium (Porcine) (Heparin 5000 units/ml) 5,000 units EVERY 12 HOURS SUBQ 10/11/17 21:00 11/09/17 09:59 10/12/17 20:40 Iron Sucrose 100 mg/Sodium Chloride 60 ml @ 240 mls/hr BEDTIME IV 10/11/17 21:00 10/13/17 21:01 10/12/17 20:33 Levetiracetam (Keppra) 1,500 mg Q12HR ORAL 10/11/17 21:00 11/09/17 12:29 10/12/17 20:32 Lorazepam (Ativan 2mg/ml 1ml) 2 mg Q1H PRN IV seizures 10/11/17 21:00 10/18/17 20:59 Ondansetron HCl (Zofran) 4 mg Q6H PRN IVP Nausea & Vomiting 10/11/17 20:30 11/09/17 20:29 Polyethylene Glycol (Miralax) 17 gm HSPRN PRN ORAL Constipation 10/11/17 20:30 11/10/17 20:29 Zolpidem Tartrate (Ambien) 5 mg HSPRN PRN ORAL Insomnia 10/11/17 20:30 10/18/17 20:29 STACI ESTRADA Oct 12, 2017 23:22
[2017-10-13] VITALS: BP 130/72
--- NOTE | 2017-10-13 00:28 | General Progress Note ---
Assessment/Plan Assessment/Plan 1. Leukopenia, which has been chronic, potentially related to underlying medications versus history of benign neutropenia. --> Continue to closely monitor. --> I have ordered a hepatitis panel and human immunodeficiency virus. --> Hep C detected. Start treatment of antiretrovirals. 2. Anemia due to underlying chronic disease. --> Continue to closely monitor. --> Anemia workup reviewed. The patient with microcytosis. --> Begin Pt on Iron. --> Blood transfusion not required unless symptomatic or hgb <7 3. Status post seizure, seizure disorder, has been compliant. --> Continue to closely monitor. She has been seen by Neurology Service. 4. Weakness and fatigue, likely due to underlying seizure disorder as well as anemia. --> We will need to start iron if necessary with ferritin as well. 5. Deep vein thrombosis prophylaxis with heparin. Subjective Date patient seen: Oct 12, 2017 Constitutional: Denies: no symptoms, chills, diaphoresis, fever, malaise, weakness, other HEENT: Denies: no symptoms, eye pain, blurred vision, tearing, double vision, ear pain, ear discharge, nose pain, nose congestion, throat pain, throat swelling, mouth pain, mouth swelling, other Cardiovascular: Denies: no symptoms, chest pain, edema, irregular heart rate, lightheadedness, palpitations, syncope, other Respiratory: Denies: no symptoms, cough, orthopnea, shortness of breath, SOB with excertion, SOB at rest, sputum, stridor, wheezing, other Gastrointestinal/Abdominal: Denies: no symptoms, abdomen distended, abdominal pain, black stools, tarry stools, blood in stool, constipated, diarrhea, difficulty swallowing, nausea, poor appetite, poor fluid intake, rectal bleeding , vomiting, other Genitourinary: Denies: no symptoms, burning, discharge, frequency, flank pain, hematuria, incontinence, pain, urgency, other Hematologic/Lymphatic: Reports: anemia Allergies: Coded Allergies: TRAMADOL (Unverified Allergy, Unknown, 03/25/15) Uncoded Allergies: MORPHINE SULFATE (Adverse Reaction, Unknown, Hives, 10/12/17) ITCHING AND HIVES Subjective On iron and antiretrovirals. NAD. Objective Last 24 Hour Vital Signs Date Time Temp Pulse Resp B/P (MAP) Pulse Ox O2 Delivery O2 Flow Rate FiO2 10/12/17 20:00 98.4 70 19 128/80 98 Room Air 10/12/17 16:00 98.2 68 20 136/90 99 Room Air 10/12/17 12:00 98.2 68 20 116/74 99 Room Air 10/12/17 08:00 97.7 65 20 134/81 98 Room Air 10/12/17 04:00 97.9 75 19 129/78 96 Room Air Intake and Output 10/12/17 10/13/17 19:00 07:00 # Voids 4 Laboratory Tests 10/12/17 06:35: White Blood Count 3.2L, Red Blood Count 4.06L, Hemoglobin 9.2L, Hematocrit 29.8L , Mean Corpuscular Volume 73L, Mean Corpuscular Hemoglobin 22.7L, Mean Corpuscular Hemoglobin Concent 31.0L, Red Cell Distribution Width 21.2H, Platelet Count 297, Mean Platelet Volume 7.3, Neutrophils (%) (Auto) , Lymphocytes (%) (Auto) , Monocytes (%) (Auto) , Eosinophils (%) (Auto) , Basophils (%) (Auto) , Differential Total Cells Counted 100, Neutrophils % ( Manual) 20L, Lymphocytes % (Manual) 67H, Monocytes % (Manual) 10, Eosinophils % (Manual) 3, Basophils % (Manual) 0, Band Neutrophils 0, Platelet Estimate Adequate, Platelet Morphology Normal, Hypochromasia 1+, Anisocytosis 2+, Microcytosis 1+, Sodium Level 139, Potassium Level 3.5, Chloride Level 105, Carbon Dioxide Level 28, Anion Gap 6, Blood Urea Nitrogen 9, Creatinine 0.7, Estimat Glomerular Filtration Rate > 60, Glucose Level 89, Calcium Level 8.7, Total Bilirubin 0.3, Aspartate Amino Transf (AST/SGOT) 161H, Alanine Aminotransferase (ALT/SGPT) 128H, Alkaline Phosphatase 150H, Total Protein 7.0, Albumin 2.8L, Globulin 4.2, Albumin/Globulin Ratio 0.7L Height (Feet): 5 Height (Inches): 7.00 Weight (Pounds): 130 General Appearance: confused Hector Huerta Oct 13, 2017 00:28
[2017-10-13] MEDS: HYDROcodone/Acetamin 10/325 tab ORAL PRN ×6 (00:29→20:42)
[2017-10-13 04:36] VITALS: BP 132/83
[2017-10-13 07:37] VITALS: BP 126/72
[2017-10-13] MEDS: Heparin 5000 units/ml inj SUBQ SCH ×2 (08:32→20:32)
--- NOTE | 2017-10-13 08:43 | General Progress Note ---
Assessment/Plan Problem List: (1) Abdominal pain ICD Codes: R10.9 - Unspecified abdominal pain SNOMED: 02946191 (2) Seizure ICD Codes: R56.9 - Unspecified convulsions SNOMED: 79340980 (3) Anemia ICD Codes: D64.9 - Anemia, unspecified SNOMED: 347814720 (4) Epileptic seizure, generalized ICD Codes: G40.909 - Epilepsy, unspecified, not intractable, without status epilepticus SNOMED: 43727771 (5) UTI (urinary tract infection) ICD Codes: N39.0 - Urinary tract infection, site not specified SNOMED: 15876954 (6) hepatitis C Status: stable, progressing, tolerating diet Assessment/Plan ot pt diet pain and seizure control heme eval dc if clear Subjective Constitutional: Reports: weakness Allergies: Coded Allergies: TRAMADOL (Unverified Allergy, Unknown, 03/25/15) Uncoded Allergies: MORPHINE SULFATE (Adverse Reaction, Unknown, Hives, 10/12/17) ITCHING AND HIVES All Systems: reviewed and negative except above Subjective no seizure Objective Last 24 Hour Vital Signs Date Time Temp Pulse Resp B/P (MAP) Pulse Ox O2 Delivery O2 Flow Rate FiO2 10/13/17 07:37 98.1 75 20 126/72 95 Room Air 10/13/17 04:36 97.7 64 19 132/83 96 Room Air 10/13/17 00:00 98.0 20 130/72 99 Room Air 10/12/17 20:00 98.4 70 19 128/80 98 Room Air 10/12/17 16:00 98.2 68 20 136/90 99 Room Air 10/12/17 12:00 98.2 68 20 116/74 99 Room Air Intake and Output 10/12/17 10/13/17 19:00 07:00 Intake Total 660 ml Balance 660 ml Intake Oral 600 ml IV Total 60 ml # Voids 4 3 Height (Feet): 5 Height (Inches): 7.00 Weight (Pounds): 130 General Appearance: alert EENT: normal ENT inspection Neck: normal alignment Cardiovascular: normal peripheral pulses, normal rate, regular rhythm Respiratory/Chest: chest wall non-tender, lungs clear, normal breath sounds Abdomen: normal bowel sounds, non tender, soft Extremities: normal inspection Edema: no edema noted Arm (L), no edema noted Arm (R), no edema noted Leg (L), no edema noted Leg (R), no edema noted Pedal (L), no edema noted Pedal (R), no edema noted Generalized Neurologic: responsive, motor weakness Skin: normal pigmentation, warm/dry JAMAAL PEREZ Oct 13, 2017 08:42
[2017-10-13 09:32] LABS: HEMATOCRIT 29.1 % (37.0-47.0); HEMOGLOBIN 8.6 G/DL (12.0-16.0); MEAN CORPUSCULAR VOLUME 75 FL (80-99); PLATELET COUNT 291 K/UL (150-450); RED BLOOD COUNT 3.87 M/UL (4.20-5.40); RED CELL DISTRIBUTION WIDTH 20.7 % (11.6-14.8); WHITE BLOOD COUNT 2.8 K/UL (4.8-10.8)
[2017-10-13 09:50] LABS: ALANINE AMINOTRANSFERASE 144 U/L (12-78); ALBUMIN 2.8 G/DL (3.4-5.0); ALBUMIN/GLOBULIN RATIO 0.7 (1.0-2.7); ALKALINE PHOSPHATASE 144 U/L (46-116); ANION GAP 7 mmol/L (5-15); ASPARTATE AMINO TRANSFERASE 191 U/L (15-37); BILIRUBIN,TOTAL 0.2 MG/DL (0.2-1.0); BLOOD UREA NITROGEN 9 mg/dL (7-18); CALCIUM 8.7 MG/DL (8.5-10.1); CARBON DIOXIDE 26 MMOL/L (21-32); CHLORIDE 104 MMOL/L (98-107); CREATININE 0.5 MG/DL (0.55-1.30); POTASSIUM 3.6 MMOL/L (3.5-5.1); SODIUM 137 MMOL/L (136-145)
[2017-10-13 11:40] VITALS: BP 132/81
--- NOTE | 2017-10-13 12:37 | Pulmonology Progress Note ---
Assessment/Plan Problems: (1) Epileptic seizure, generalized (2) Anemia (3) Abdominal pain (4) hepatitis C Assessment/Plan med/surg GI evaluation appreciated seizures are controlled iron iv anemia w/u in progress dc home Subjective ROS Limited/Unobtainable: No Constitutional: Reports: no symptoms HEENT: Repors: no symptoms Allergies: Coded Allergies: TRAMADOL (Unverified Allergy, Unknown, 03/25/15) Uncoded Allergies: MORPHINE SULFATE (Adverse Reaction, Unknown, Hives, 10/12/17) ITCHING AND HIVES Objective Last 24 Hour Vital Signs Date Time Temp Pulse Resp B/P (MAP) Pulse Ox O2 Delivery O2 Flow Rate FiO2 10/13/17 11:40 97.6 82 18 132/81 99 Room Air 10/13/17 07:37 98.1 75 20 126/72 95 Room Air 10/13/17 04:36 97.7 64 19 132/83 96 Room Air 10/13/17 00:00 98.0 20 130/72 99 Room Air 10/12/17 20:00 98.4 70 19 128/80 98 Room Air 10/12/17 16:00 98.2 68 20 136/90 99 Room Air Intake and Output 10/12/17 10/13/17 19:00 07:00 Intake Total 660 ml Balance 660 ml Intake Oral 600 ml IV Total 60 ml # Voids 4 3 Objective General Appearance: WD/WN, mil HEENT: normocephalic, atraumatic Neck: normal alignment, supple Respiratory/Chest: chest wall non-tender, lungs clear Cardiovascular/Chest: normal peripheral pulses, normal rate Abdomen: normal bowel sounds, non tender Genitourinary/Rectal: normal genital exam Extremities: normal range of motion, Laboratory Tests 10/13/17 06:26: White Blood Count 2.8L, Red Blood Count 3.87L, Hemoglobin 8.6L, Hematocrit 29.1L , Mean Corpuscular Volume 75L, Mean Corpuscular Hemoglobin 22.3L, Mean Corpuscular Hemoglobin Concent 29.7L, Red Cell Distribution Width 20.7H, Platelet Count 291, Mean Platelet Volume 6.8, Neutrophils (%) (Auto) , Lymphocytes (%) (Auto) , Monocytes (%) (Auto) , Eosinophils (%) (Auto) , Basophils (%) (Auto) , Neutrophils % (Manual) [Pending], Lymphocytes % (Manual) [Pending], Platelet Estimate [Pending], Platelet Morphology [Pending], Sodium Level 137, Potassium Level 3.6, Chloride Level 104, Carbon Dioxide Level 26, Anion Gap 7, Blood Urea Nitrogen 9, Creatinine 0.5L, Estimat Glomerular Filtration Rate > 60, Glucose Level 73L, Calcium Level 8.7, Total Bilirubin 0.2 , Aspartate Amino Transf (AST/SGOT) 191H, Alanine Aminotransferase (ALT/SGPT) 144H, Alkaline Phosphatase 144H, Total Protein 7.0, Albumin 2.8L, Globulin 4.2, Albumin/Globulin Ratio 0.7L Current Medications Medications (Trade) Dose Ordered Sig/Sawyer Route PRN Reason Start Time Stop Time Status Last Admin Dose Admin Acetaminophen (Tylenol) 650 mg Q4H PRN ORAL fever 10/11/17 21:00 11/09/17 08:59 Acetaminophen/ Hydrocodone Bitart ([place] 10/325) 1 tab Q4H PRN ORAL For Pain 10/12/17 23:00 10/19/17 22:59 10/13/17 12:35 Al Hydroxide/Mg Hydroxide (Mylanta II) 30 ml Q6H PRN ORAL dyspepsia 10/11/17 21:00 11/09/17 08:59 Dextrose (Dextrose 50%) STAT PRN IV Hypoglycemia 10/11/17 21:00 11/10/17 20:59 Diphenhydramine HCl (Benadryl) 25 mg Q6H PRN ORAL Itching 10/12/17 04:00 11/11/17 03:59 10/13/17 06:17 Gabapentin (Neurontin) 300 mg Q12HR ORAL 10/11/17 21:00 11/09/17 12:29 10/13/17 08:27 Heparin Sodium (Porcine) (Heparin 5000 units/ml) 5,000 units EVERY 12 HOURS SUBQ 10/11/17 21:00 11/09/17 09:59 10/13/17 08:32 Iron Sucrose 100 mg/Sodium Chloride 60 ml @ 240 mls/hr BEDTIME IV 10/11/17 21:00 10/13/17 21:01 10/12/17 20:33 Levetiracetam (Keppra) 1,500 mg Q12HR ORAL 10/11/17 21:00 3/9/18 12:29 10/13/17 08:27 Lorazepam (Ativan 2mg/ml 1ml) 2 mg Q1H PRN IV seizures 10/11/17 21:00 10/18/17 20:59 Ondansetron HCl (Zofran) 4 mg Q6H PRN IVP Nausea & Vomiting 10/11/17 20:30 11/09/17 20:29 Polyethylene Glycol (Miralax) 17 gm HSPRN PRN ORAL Constipation 10/11/17 20:30 11/10/17 20:29 Zolpidem Tartrate (Ambien) 5 mg HSPRN PRN ORAL Insomnia 10/11/17 20:30 10/18/17 20:29 STACI ESTRADA Oct 13, 2017 12:37
[2017-10-13] MEDS ORDERED: ACETAMINOPHEN-1 EAC1 ORAL (13:14)
[2017-10-13] MEDS ORDERED: Tubing IV Secondary IV ONE (14:55)
[2017-10-13] MEDS ORDERED: NS 275ml ONE (14:55)
[2017-10-13 16:00] VITALS: BP 122/76
--- NOTE | 2017-10-13 17:57 | General Progress Note ---
Assessment/Plan Assessment/Plan Assessment - Hepatitis C - Drug tox (+) - abd pain Recommendations - avoid narcotics - push po - follow symptoms - will consider further GI w/u Subjective Allergies: Coded Allergies: TRAMADOL (Unverified Allergy, Unknown, 03/25/15) Uncoded Allergies: MORPHINE SULFATE (Adverse Reaction, Unknown, Hives, 10/12/17) ITCHING AND HIVES Subjective Seen earlier today denied complaints ate well (+) BM but subsequently refused discharge due to abd pain Objective Last 24 Hour Vital Signs Date Time Temp Pulse Resp B/P (MAP) Pulse Ox O2 Delivery O2 Flow Rate FiO2 10/13/17 16:00 98.1 59 19 122/76 98 Room Air 10/13/17 11:40 97.6 82 18 132/81 99 Room Air 10/13/17 07:37 98.1 75 20 126/72 95 Room Air 10/13/17 04:36 97.7 64 19 132/83 96 Room Air 10/13/17 00:00 98.0 20 130/72 99 Room Air 10/12/17 20:00 98.4 70 19 128/80 98 Room Air Intake and Output 10/12/17 10/13/17 19:00 07:00 Intake Total 660 ml Balance 660 ml Intake Oral 600 ml IV Total 60 ml # Voids 4 3 Laboratory Tests 10/13/17 06:26: White Blood Count 2.8L, Red Blood Count 3.87L, Hemoglobin 8.6L, Hematocrit 29.1L , Mean Corpuscular Volume 75L, Mean Corpuscular Hemoglobin 22.3L, Mean Corpuscular Hemoglobin Concent 29.7L, Red Cell Distribution Width 20.7H, Platelet Count 291, Mean Platelet Volume 6.8, Neutrophils (%) (Auto) , Lymphocytes (%) (Auto) , Monocytes (%) (Auto) , Eosinophils (%) (Auto) , Basophils (%) (Auto) , Differential Total Cells Counted 100, Neutrophils % ( Manual) 19L, Lymphocytes % (Manual) 66H, Monocytes % (Manual) 10, Eosinophils % (Manual) 4H, Basophils % (Manual) 1, Band Neutrophils 0, Platelet Estimate Adequate, Platelet Morphology Normal, Hypochromasia 2+, Anisocytosis 2+, Microcytosis 1+, Sodium Level 137, Potassium Level 3.6, Chloride Level 104, Carbon Dioxide Level 26, Anion Gap 7, Blood Urea Nitrogen 9, Creatinine 0.5L, Estimat Glomerular Filtration Rate > 60, Glucose Level 73L, Calcium Level 8.7, Total Bilirubin 0.2, Aspartate Amino Transf (AST/SGOT) 191H, Alanine Aminotransferase (ALT/SGPT) 144H, Alkaline Phosphatase 144H, Total Protein 7.0, Albumin 2.8L, Globulin 4.2, Albumin/Globulin Ratio 0.7L Height (Feet): 5 Height (Inches): 7.00 Weight (Pounds): 130 Objective WDWN NCAT supple CTA RRR soft NT ND no edema non focal JADYN MONTGOMERY Oct 13, 2017 17:57
[2017-10-13] MEDS: Iron Sucrose 100 MG in NS 55 ML IV SCH (20:50)
[2017-10-13 20:55] VITALS: BP 122/80
--- NOTE | 2017-10-13 23:22 | General Progress Note ---
Assessment/Plan Assessment/Plan 1. Leukopenia, which has been chronic, potentially related to underlying medications versus history of benign neutropenia. --> Continue to closely monitor. --> Hep C detected. Start treatment of antiretrovirals. --> Some abd pain noted, on pain control. 2. Anemia due to underlying chronic disease. --> Continue to closely monitor. --> Anemia workup reviewed. The patient with microcytosis. --> Pt on iron, hemoglobin has been above goal --> Blood transfusion not required unless symptomatic or hgb <7 3. Status post seizure, seizure disorder, has been compliant. --> Continue to closely monitor. She has been seen by Neurology Service. 4. Weakness and fatigue, likely due to underlying seizure disorder as well as anemia. --> We will need to start iron if necessary with ferritin as well. 5. Deep vein thrombosis prophylaxis with heparin. Subjective Date patient seen: Oct 13, 2017 Constitutional: Denies: no symptoms, chills, diaphoresis, fever, malaise, weakness, other HEENT: Denies: no symptoms, eye pain, blurred vision, tearing, double vision, ear pain, ear discharge, nose pain, nose congestion, throat pain, throat swelling, mouth pain, mouth swelling, other Cardiovascular: Denies: no symptoms, chest pain, edema, irregular heart rate, lightheadedness, palpitations, syncope, other Respiratory: Denies: no symptoms, cough, orthopnea, shortness of breath, SOB with excertion, SOB at rest, sputum, stridor, wheezing, other Gastrointestinal/Abdominal: Denies: no symptoms, abdomen distended, abdominal pain, black stools, tarry stools, blood in stool, constipated, diarrhea, difficulty swallowing, nausea, poor appetite, poor fluid intake, rectal bleeding , vomiting, other Genitourinary: Denies: no symptoms, burning, discharge, frequency, flank pain, hematuria, incontinence, pain, urgency, other Hematologic/Lymphatic: Reports: anemia Allergies: Coded Allergies: TRAMADOL (Unverified Allergy, Unknown, 03/25/15) Uncoded Allergies: MORPHINE SULFATE (Adverse Reaction, Unknown, Hives, 10/12/17) ITCHING AND HIVES Subjective Pt has abd pain. On abx and pain control. Objective Last 24 Hour Vital Signs Date Time Temp Pulse Resp B/P (MAP) Pulse Ox O2 Delivery O2 Flow Rate FiO2 10/13/17 21:41 98.0 10/13/17 20:55 98.0 74 19 122/80 96 10/13/17 16:00 98.1 59 19 122/76 98 Room Air 10/13/17 11:40 97.6 82 18 132/81 99 Room Air 10/13/17 07:37 98.1 75 20 126/72 95 Room Air 10/13/17 04:36 97.7 64 19 132/83 96 Room Air 10/13/17 00:00 98.0 20 130/72 99 Room Air Intake and Output 10/12/17 10/13/17 19:00 07:00 Intake Total 660 ml Balance 660 ml Intake Oral 600 ml IV Total 60 ml # Voids 4 3 Laboratory Tests 10/13/17 06:26: White Blood Count 2.8L, Red Blood Count 3.87L, Hemoglobin 8.6L, Hematocrit 29.1L , Mean Corpuscular Volume 75L, Mean Corpuscular Hemoglobin 22.3L, Mean Corpuscular Hemoglobin Concent 29.7L, Red Cell Distribution Width 20.7H, Platelet Count 291, Mean Platelet Volume 6.8, Neutrophils (%) (Auto) , Lymphocytes (%) (Auto) , Monocytes (%) (Auto) , Eosinophils (%) (Auto) , Basophils (%) (Auto) , Differential Total Cells Counted 100, Neutrophils % ( Manual) 19L, Lymphocytes % (Manual) 66H, Monocytes % (Manual) 10, Eosinophils % (Manual) 4H, Basophils % (Manual) 1, Band Neutrophils 0, Platelet Estimate Adequate, Platelet Morphology Normal, Hypochromasia 2+, Anisocytosis 2+, Microcytosis 1+, Sodium Level 137, Potassium Level 3.6, Chloride Level 104, Carbon Dioxide Level 26, Anion Gap 7, Blood Urea Nitrogen 9, Creatinine 0.5L, Estimat Glomerular Filtration Rate > 60, Glucose Level 73L, Calcium Level 8.7, Total Bilirubin 0.2, Aspartate Amino Transf (AST/SGOT) 191H, Alanine Aminotransferase (ALT/SGPT) 144H, Alkaline Phosphatase 144H, Total Protein 7.0, Albumin 2.8L, Globulin 4.2, Albumin/Globulin Ratio 0.7L Height (Feet): 5 Height (Inches): 7.00 Weight (Pounds): 130 Kleynberg,Hector L. Oct 13, 2017 23:22
[2017-10-14 00:07] VITALS: BP 133/96
[2017-10-14] MEDS: HYDROcodone/Acetamin 10/325 tab ORAL PRN ×5 (00:44→20:53)
[2017-10-14 04:14] VITALS: BP 126/84
[2017-10-14] MEDS: Heparin 5000 units/ml inj SUBQ SCH ×2 (07:58→20:59)
[2017-10-14 08:00] VITALS: BP 120/67
--- NOTE | 2017-10-14 09:09 | General Progress Note ---
Assessment/Plan Problem List: (1) Abdominal pain ICD Codes: R10.9 - Unspecified abdominal pain SNOMED: 01620762 (2) Seizure ICD Codes: R56.9 - Unspecified convulsions SNOMED: 58930946 (3) Anemia ICD Codes: D64.9 - Anemia, unspecified SNOMED: 451024402 (4) Epileptic seizure, generalized ICD Codes: G40.909 - Epilepsy, unspecified, not intractable, without status epilepticus SNOMED: 51293475 (5) UTI (urinary tract infection) ICD Codes: N39.0 - Urinary tract infection, site not specified SNOMED: 50157960 (6) hepatitis C Status: unchanged Assessment/Plan ot pt diet pain and seizure control cbc bmp am heme eval dc if clear Subjective Constitutional: Reports: weakness Allergies: Coded Allergies: TRAMADOL (Unverified Allergy, Unknown, 03/25/15) Uncoded Allergies: MORPHINE SULFATE (Adverse Reaction, Unknown, Hives, 10/12/17) ITCHING AND HIVES All Systems: reviewed and negative except above Subjective no seizure Objective Last 24 Hour Vital Signs Date Time Temp Pulse Resp B/P (MAP) Pulse Ox O2 Delivery O2 Flow Rate FiO2 10/14/17 08:00 97.3 78 18 120/67 99 10/14/17 04:14 98.0 58 20 126/84 96 Room Air 10/14/17 01:43 98.0 10/14/17 00:07 98.0 79 19 133/96 96 10/13/17 20:55 98.0 74 19 122/80 96 10/13/17 16:00 98.1 59 19 122/76 98 Room Air 10/13/17 11:40 97.6 82 18 132/81 99 Room Air Intake and Output 10/13/17 10/14/17 19:00 07:00 Intake Total 600 ml 720 ml Balance 600 ml 720 ml Intake Oral 600 ml 660 ml IV Total 60 ml # Voids 3 2 Height (Feet): 5 Height (Inches): 7.00 Weight (Pounds): 130 General Appearance: alert EENT: normal ENT inspection Neck: normal alignment Cardiovascular: normal peripheral pulses, normal rate, regular rhythm Respiratory/Chest: chest wall non-tender, lungs clear, normal breath sounds Abdomen: normal bowel sounds, non tender, soft Extremities: normal inspection Edema: no edema noted Arm (L), no edema noted Arm (R), no edema noted Leg (L), no edema noted Leg (R), no edema noted Pedal (L), no edema noted Pedal (R), no edema noted Generalized Neurologic: responsive, motor weakness Skin: normal pigmentation, warm/dry JAMAAL PEREZ Oct 14, 2017 09:09
--- NOTE | 2017-10-14 11:11 | Pulmonology Progress Note ---
Assessment/Plan Problems: (1) Epileptic seizure, generalized (2) Anemia (3) Abdominal pain (4) hepatitis C Assessment/Plan med/surg GI f/u seizures are controlled iron iv anemia w/u in progress dc home Subjective ROS Limited/Unobtainable: No Allergies: Coded Allergies: TRAMADOL (Unverified Allergy, Unknown, 03/25/15) Uncoded Allergies: MORPHINE SULFATE (Adverse Reaction, Unknown, Hives, 10/12/17) ITCHING AND HIVES Objective Last 24 Hour Vital Signs Date Time Temp Pulse Resp B/P (MAP) Pulse Ox O2 Delivery O2 Flow Rate FiO2 10/14/17 08:51 97.3 10/14/17 08:00 97.3 78 18 120/67 99 10/14/17 04:14 98.0 58 20 126/84 96 Room Air 10/14/17 00:07 98.0 79 19 133/96 96 10/13/17 20:55 98.0 74 19 122/80 96 10/13/17 16:00 98.1 59 19 122/76 98 Room Air 10/13/17 11:40 97.6 82 18 132/81 99 Room Air Intake and Output 10/13/17 10/14/17 19:00 07:00 Intake Total 600 ml 720 ml Balance 600 ml 720 ml Intake Oral 600 ml 660 ml IV Total 60 ml # Voids 3 2 Objective General Appearance: WD/WN, mil HEENT: normocephalic, atraumatic Neck: normal alignment, supple Respiratory/Chest: chest wall non-tender, lungs clear Cardiovascular/Chest: normal peripheral pulses, normal rate Abdomen: normal bowel sounds, non tender Genitourinary/Rectal: normal genital exam Extremities: normal range of motion, Current Medications Medications (Trade) Dose Ordered Sig/Sawyer Route PRN Reason Start Time Stop Time Status Last Admin Dose Admin Acetaminophen (Tylenol) 650 mg Q4H PRN ORAL fever 10/11/17 21:00 11/09/17 08:59 Acetaminophen/ Hydrocodone Bitart ([place] 10/325) 1 tab Q4H PRN ORAL For Pain 10/12/17 23:00 10/19/17 22:59 10/14/17 07:52 Al Hydroxide/Mg Hydroxide (Mylanta II) 30 ml Q6H PRN ORAL dyspepsia 10/11/17 21:00 11/09/17 08:59 Dextrose (Dextrose 50%) STAT PRN IV Hypoglycemia 10/11/17 21:00 11/10/17 20:59 Diphenhydramine HCl (Benadryl) 25 mg Q6H PRN ORAL Itching 10/12/17 04:00 11/11/17 03:59 10/13/17 23:18 Gabapentin (Neurontin) 300 mg Q12HR ORAL 10/11/17 21:00 11/09/17 12:29 10/14/17 07:57 Heparin Sodium (Porcine) (Heparin 5000 units/ml) 5,000 units EVERY 12 HOURS SUBQ 10/11/17 21:00 11/09/17 09:59 10/14/17 07:58 Levetiracetam (Keppra) 1,500 mg Q12HR ORAL 10/11/17 21:00 11/09/17 12:29 10/14/17 07:57 Lorazepam (Ativan 2mg/ml 1ml) 2 mg Q1H PRN IV seizures 10/11/17 21:00 10/18/17 20:59 Ondansetron HCl (Zofran) 4 mg Q6H PRN IVP Nausea & Vomiting 10/11/17 20:30 11/09/17 20:29 Polyethylene Glycol (Miralax) 17 gm HSPRN PRN ORAL Constipation 10/11/17 20:30 11/10/17 20:29 Zolpidem Tartrate (Ambien) 5 mg HSPRN PRN ORAL Insomnia 10/11/17 20:30 10/18/17 20:29 STACI ESTRADA Oct 14, 2017 11:11
[2017-10-14 12:00] VITALS: BP 124/76
[2017-10-14 16:00] VITALS: BP 116/79
[2017-10-14 20:00] VITALS: BP 125/75
--- NOTE | 2017-10-14 20:47 | General Progress Note ---
Assessment/Plan Assessment/Plan Assessment - Hepatitis C - Drug tox (+) - abd pain, RUQ Recommendations - avoid narcotics - push po - follow symptoms - EGD and CT tomorrow Subjective Allergies: Coded Allergies: TRAMADOL (Unverified Allergy, Unknown, 03/25/15) Uncoded Allergies: MORPHINE SULFATE (Adverse Reaction, Unknown, Hives, 10/12/17) ITCHING AND HIVES Subjective still with RUQ pain worse after PO s/p lauryn declines d/c - wants further w/u Objective Last 24 Hour Vital Signs Date Time Temp Pulse Resp B/P (MAP) Pulse Ox O2 Delivery O2 Flow Rate FiO2 10/14/17 20:00 97.8 62 18 125/75 97 Room Air 10/14/17 18:10 98.2 10/14/17 16:00 98.2 69 19 116/79 98 10/14/17 12:00 97.2 78 18 124/76 98 10/14/17 08:00 97.3 78 18 120/67 99 10/14/17 04:14 98.0 58 20 126/84 96 Room Air 10/14/17 00:07 98.0 79 19 133/96 96 10/13/17 20:55 98.0 74 19 122/80 96 Intake and Output 10/13/17 10/14/17 19:00 07:00 Intake Total 600 ml 720 ml Balance 600 ml 720 ml Intake Oral 600 ml 660 ml IV Total 60 ml # Voids 3 2 Height (Feet): 5 Height (Inches): 7.00 Weight (Pounds): 130 Objective WDWN NCAT supple CTA RRR soft RUQ TTP no edema non focal JADYN MONTGOMERY Oct 14, 2017 20:47
[2017-10-15] VITALS (13 sets, daily range): BP systolic 114–149; BP diastolic 68–103
--- NOTE | 2017-10-15 00:07 | General Progress Note ---
Assessment/Plan Status: unchanged Assessment/Plan 1. Leukopenia, which has been chronic, potentially related to underlying medications versus history of benign neutropenia. --> Continue to closely monitor. --> Hep C detected. Start treatment of antiretrovirals. --> Severe abd pain noted, on pain control. --> Patient on antibiotics. 2. Anemia due to underlying chronic disease. --> Continue to closely monitor. --> Anemia workup reviewed. The patient with microcytosis. --> Pt on iron, hemoglobin has been above goal --> Blood transfusion not required unless symptomatic or hgb <7 3. Status post seizure, seizure disorder, has been compliant. --> Continue to closely monitor. She has been seen by Neurology Service. 4. Weakness and fatigue, likely due to underlying seizure disorder as well as anemia. --> We will need to start iron if necessary with ferritin as well. 5. Deep vein thrombosis prophylaxis with heparin. Subjective Date patient seen: Oct 14, 2017 Constitutional: Denies: no symptoms, chills, diaphoresis, fever, malaise, weakness, other HEENT: Denies: no symptoms, eye pain, blurred vision, tearing, double vision, ear pain, ear discharge, nose pain, nose congestion, throat pain, throat swelling, mouth pain, mouth swelling, other Cardiovascular: Denies: no symptoms, chest pain, edema, irregular heart rate, lightheadedness, palpitations, syncope, other Respiratory: Denies: no symptoms, cough, orthopnea, shortness of breath, SOB with excertion, SOB at rest, sputum, stridor, wheezing, other Gastrointestinal/Abdominal: Denies: no symptoms, abdomen distended, abdominal pain, black stools, tarry stools, blood in stool, constipated, diarrhea, difficulty swallowing, nausea, poor appetite, poor fluid intake, rectal bleeding , vomiting, other Genitourinary: Denies: no symptoms, burning, discharge, frequency, flank pain, hematuria, incontinence, pain, urgency, other Allergies: Coded Allergies: TRAMADOL (Unverified Allergy, Unknown, 03/25/15) Uncoded Allergies: MORPHINE SULFATE (Adverse Reaction, Unknown, Hives, 10/12/17) ITCHING AND HIVES Subjective Abdominal pain 04/12. On pain control Objective Last 24 Hour Vital Signs Date Time Temp Pulse Resp B/P (MAP) Pulse Ox O2 Delivery O2 Flow Rate FiO2 10/14/17 21:52 97.8 10/14/17 20:00 97.8 62 18 125/75 97 Room Air 10/14/17 16:00 98.2 69 19 116/79 98 10/14/17 12:00 97.2 78 18 124/76 98 10/14/17 08:00 97.3 78 18 120/67 99 10/14/17 04:14 98.0 58 20 126/84 96 Room Air 10/14/17 00:07 98.0 79 19 133/96 96 Intake and Output 10/14/17 10/15/17 19:00 07:00 Intake Total 480 ml 360 ml Balance 480 ml 360 ml Intake Oral 480 ml 360 ml # Voids 3 Height (Feet): 5 Height (Inches): 7.00 Weight (Pounds): 130 General Appearance: agitated Hector Huerta Oct 15, 2017 00:07
[2017-10-15] MEDS: HYDROcodone/Acetamin 10/325 tab ORAL PRN ×5 (01:05→21:52)
[2017-10-15 08:09] LABS: HEMATOCRIT 33.2 % (37.0-47.0); HEMOGLOBIN 9.8 G/DL (12.0-16.0); MEAN CORPUSCULAR VOLUME 76 FL (80-99); PLATELET COUNT 357 K/UL (150-450); RED BLOOD COUNT 4.38 M/UL (4.20-5.40); RED CELL DISTRIBUTION WIDTH 22.1 % (11.6-14.8); WHITE BLOOD COUNT 3.6 K/UL (4.8-10.8)
[2017-10-15 08:12] LABS: ANION GAP 7 mmol/L (5-15); BLOOD UREA NITROGEN 11 mg/dL (7-18); CALCIUM 8.8 MG/DL (8.5-10.1); CARBON DIOXIDE 27 MMOL/L (21-32); CHLORIDE 107 MMOL/L (98-107); CREATININE 0.7 MG/DL (0.55-1.30); POTASSIUM 4.6 MMOL/L (3.5-5.1); SODIUM 141 MMOL/L (136-145)
[2017-10-15] MEDS: Heparin 5000 units/ml inj SUBQ SCH ×2 (09:00→20:41)
--- NOTE | 2017-10-15 10:19 | Pre-Procedure Note/Attestation ---
Pre-Procedure Note/Attestation Complete Prior to Procedure Planned Procedure: not applicable Procedure Narrative: egd Indications for Procedure Pre-Operative Diagnosis: abd pain Attestation I attest that I discussed the nature of the procedure; its benefits; risks and complications; and alternatives (and the risks and benefits of such alternatives ), prior to the procedure, with the patient (or the patient's legal home office representative). I attest that, if there was a reasonable possibility of needing a blood transfusion, the patient (or the patient's legal home office representative) was given the [facility] standardized written summary, pursuant to the [place] Blood Safety Act ([place] Health and Safety Code # 1645, as amended). I attest that I re-evaluated the patient just prior to the surgery and that there has been no change in the patient's H&P, except as documented below: ALISHA MANRIQUE Oct 15, 2017 10:19
[2017-10-15] MEDS ORDERED: Tubing IV Extension IV ONE (10:25)
[2017-10-15] MEDS ORDERED: NS 500ML IV ONE (10:25)
[2017-10-15] MEDS ORDERED: Propofol 200mg/20ml IV ONE (10:30)
[2017-10-15] MEDS ORDERED: Lidocaine 1% MPF 10mg/ml 5ml ONE (10:30)
[2017-10-15] MEDS ORDERED: LR 1000ml ONE (10:30)
[2017-10-15] MEDS ORDERED: Midazolam 2mg/2ml Inj ONE (10:30)
--- NOTE | 2017-10-15 10:48 | Endoscopy Procedure Note ---
Endoscopy Procedure Note Indication for Procedure: abd pain Procedures Performed: EGD Operative Findings/Diagnosis: gastric bypass Specimen: yes Pt Tolerated Procedure Well: Yes Estimated Blood Loss: none Anesthesiologist: daniel Anesthesia: MAC Implant(s) used?: No 50 yrs or older w/o bx or poly: Not Applicable 10yrs. F/U not recommended: Not Applicable ALISHA MANRIQEU Oct 15, 2017 10:48
[2017-10-15] MEDS ORDERED: LR 1000ml 1,000 ML IVLG SCH (10:49)
--- NOTE | 2017-10-15 10:54 | Anethesia Preoperative Eval ---
Anesthesia Pre-op PMH/ROS General Date of Evaluation: Oct 15, 2017 Time of Evaluation: 10:37 Anesthesiologist: Jhon ASA Score: ASA 3 Mallampati Score Class I : Soft palate, uvula, fauces, pillars visible Class II: Soft palate, uvula, fauces visible Class III: Soft palate, base of uvula visible Class IV: Only hard plate visible Mallampati Classification: Class II Surgeon: Nano Diagnosis: Abd Pain Surgical Procedure: EGD Anesthesia History: none Family History: no anesthesia problems Allergies: Coded Allergies: TRAMADOL (Unverified Allergy, Unknown, 03/25/15) Uncoded Allergies: MORPHINE SULFATE (Adverse Reaction, Unknown, Hives, 10/12/17) ITCHING AND HIVES Medications: see eMAR Past Medical History Gastrointestinal/Genitourinary: Reports: other - Pancreatitis Neurologic/Psychiatric: Reports: other - Seizure Endocrine: Reports: other - Hep C Hematology/Immune: Reports: anemia Anesthesia Pre-op Phys. Exam Physician Exam Last Vital Signs Date Time Temp Pulse Resp B/P (MAP) Pulse Ox O2 Delivery O2 Flow Rate FiO2 10/15/17 08:00 97.5 61 19 123/73 99 10/15/17 03:41 Room Air Constitutional: NAD Neurologic: CN 2-12 intact Cardiovascular: RRR Respiratory: CTA Gastrointestinal: S/NT/ND Airway Exam Mallampati Score: Class II MO: limited ROM: limited Teeth: intact Anesthesia Pre-op A/P Labs Hematology Test 10/15/17 07:25 White Blood Count 3.6 K/UL (4.8-10.8) L Red Blood Count 4.38 M/UL (4.20-5.40) Hemoglobin 9.8 G/DL (12.0-16.0) L Hematocrit 33.2 % (37.0-47.0) L Mean Corpuscular Volume 76 FL (80-99) L Mean Corpuscular Hemoglobin 22.4 PG (27.0-31.0) L Mean Corpuscular Hemoglobin Concent 29.6 G/DL (32.0-36.0) L Red Cell Distribution Width 22.1 % (11.6-14.8) H Platelet Count 357 K/UL (150-450) Mean Platelet Volume 7.2 FL (6.5-10.1) Neutrophils (%) (Auto) % (45.0-75.0) Lymphocytes (%) (Auto) % (20.0-45.0) Monocytes (%) (Auto) % (1.0-10.0) Eosinophils (%) (Auto) % (0.0-3.0) Basophils (%) (Auto) % (0.0-2.0) Differential Total Cells Counted 100 Neutrophils % (Manual) 16 % (45-75) L Lymphocytes % (Manual) 66 % (20-45) H Monocytes % (Manual) 11 % (1-10) H Eosinophils % (Manual) 7 % (0-3) H Basophils % (Manual) 0 % (0-2) Band Neutrophils 0 % (0-8) Platelet Estimate Adequate Platelet Morphology Normal Hypochromasia 1+ Anisocytosis 2+ Microcytosis 1+ Chemistry Test 10/15/17 07:25 Sodium Level 141 MMOL/L (136-145) Potassium Level 4.6 MMOL/L (3.5-5.1) Chloride Level 107 MMOL/L (98-107) Carbon Dioxide Level 27 MMOL/L (21-32) Anion Gap 7 mmol/L (5-15) Blood Urea Nitrogen 11 mg/dL (7-18) Creatinine 0.7 MG/DL (0.55-1.30) Estimat Glomerular Filtration Rate > 60 mL/min (>60) Glucose Level 80 MG/DL (74-106) Calcium Level 8.8 MG/DL (8.5-10.1) Risk Assessment & Plan Assessment: ASA 3 Plan: GA Status Change Before Surgery: Garcia Ahumada MD Oct 15, 2017 10:54
--- NOTE | 2017-10-15 10:54 | Immediate Post-Op Evaluation ---
Immediate Post-Op Evalulation Immediate Post-Op Evalulation Procedure: EGD Date of Evaluation: Oct 15, 2017 Time of Evaluation: 11:18 IV Fluids: 250 LR Blood Products: 0 Estimated Blood Loss: 1 Urinary Output: 0 Blood Pressure Systolic: 145 Blood Pressure Diastolic: 90 Pulse Rate: 71 Respiratory Rate: 16 O2 Sat by Pulse Oximetry: 100 Temperature (Fahrenheit): 97.7 Pain Score (1-10): 1 Nausea: No Vomiting: No Complications 0 Patient Status: awake, reacts, patent, none Hydration Status: adequate Garcia Ferreira MD Oct 15, 2017 10:54
--- NOTE | 2017-10-15 10:55 | 48 Hour Post Anesthesia Eval ---
Post Anesthesia Evaluation Procedure: EGD Date of Evaluation: Oct 15, 2017 Time of Evaluation: 13:22 Blood Pressure Systolic: 156 0: 98 Pulse Rate: 73 Respiratory Rate: 18 Temperature (Fahrenheit): 98.2 O2 Sat by Pulse Oximetry: 100 Airway: patent Nausea: No Vomiting: No Pain Intensity: 1 Hydration Status: adequate Cardiopulmonary Status: Stable Mental Status/LOC: patient returned to baseline Follow-up Care/Observations: 0 Post-Anesthesia Complications: 0 Follow-up care needed: N/A Garcia Ferreira MD Oct 15, 2017 10:55
[2017-10-15] MEDS ORDERED: DiphenhydrAMINE 50mg/ml Inj IVP PRN (11:00)
[2017-10-15] MEDS ORDERED: LORazepam Inj 2mg/ml 1ml IV PRN (11:00)
[2017-10-15] MEDS ORDERED: Labetalol 5mg/ml 20ml vial IV PRN (11:00)
[2017-10-15] MEDS ORDERED: Midazolam 2mg/2ml Inj IVP PRN (11:00)
[2017-10-15] MEDS ORDERED: Atropine Inj 1mg/10ml Syr IV PRN (11:00)
[2017-10-15] MEDS ORDERED: fentaNYL 100 mcg/2 mL IV ONE (11:08)
[2017-10-15] MEDS: fentaNYL 100 mcg/2 mL IV PRN ×2 (11:13→11:23)
--- NOTE | 2017-10-15 13:32 | General Progress Note ---
Assessment/Plan Problem List: (1) Abdominal pain ICD Codes: R10.9 - Unspecified abdominal pain SNOMED: 11304896 (2) Seizure ICD Codes: R56.9 - Unspecified convulsions SNOMED: 64128340 (3) Anemia ICD Codes: D64.9 - Anemia, unspecified SNOMED: 477353403 (4) Epileptic seizure, generalized ICD Codes: G40.909 - Epilepsy, unspecified, not intractable, without status epilepticus SNOMED: 74938322 (5) UTI (urinary tract infection) ICD Codes: N39.0 - Urinary tract infection, site not specified SNOMED: 11074221 (6) hepatitis C Status: unchanged Assessment/Plan ot pt diet pain and seizure control cbc bmp am heme eval dc if clear Subjective Constitutional: Reports: weakness Allergies: Coded Allergies: TRAMADOL (Unverified Allergy, Unknown, 03/25/15) Uncoded Allergies: MORPHINE SULFATE (Adverse Reaction, Unknown, Hives, 10/12/17) ITCHING AND HIVES All Systems: reviewed and negative except above Subjective no seizure c/o recurrent abd pain Objective Last 24 Hour Vital Signs Date Time Temp Pulse Resp B/P (MAP) Pulse Ox O2 Delivery O2 Flow Rate FiO2 10/15/17 12:33 97.5 60 19 117/78 98 10/15/17 12:00 97.5 68 19 125/78 96 Room Air 10/15/17 11:53 97.5 10/15/17 11:45 69 20 127/77 97 Room Air 10/15/17 11:30 68 19 137/80 98 Room Air 10/15/17 11:23 98.2 10/15/17 11:17 69 20 138/100 100 Room Air 10/15/17 11:13 98.2 10/15/17 11:12 68 19 145/90 100 Room Air 10/15/17 11:11 208.8 73 18 100 10/15/17 11:10 207.9 71 16 100 10/15/17 11:07 97.5 73 15 149/103 100 Room Air 10/15/17 08:00 97.5 61 19 123/73 99 10/15/17 03:41 98.1 61 18 118/68 98 Room Air 61 10/15/17 02:04 98.1 10/15/17 00:00 98.1 71 18 125/80 98 Room Air 10/14/17 20:00 97.8 62 18 125/75 97 Room Air 10/14/17 16:00 98.2 69 19 116/79 98 Intake and Output 10/14/17 10/15/17 19:00 07:00 Intake Total 480 ml 390 ml Balance 480 ml 390 ml Intake Oral 480 ml 390 ml # Voids 3 2 Laboratory Tests 10/15/17 07:25: White Blood Count 3.6L, Red Blood Count 4.38, Hemoglobin 9.8L, Hematocrit 33.2L , Mean Corpuscular Volume 76L, Mean Corpuscular Hemoglobin 22.4L, Mean Corpuscular Hemoglobin Concent 29.6L, Red Cell Distribution Width 22.1H, Platelet Count 357, Mean Platelet Volume 7.2, Neutrophils (%) (Auto) , Lymphocytes (%) (Auto) , Monocytes (%) (Auto) , Eosinophils (%) (Auto) , Basophils (%) (Auto) , Differential Total Cells Counted 100, Neutrophils % ( Manual) 16L, Lymphocytes % (Manual) 66H, Monocytes % (Manual) 11H, Eosinophils % (Manual) 7H, Basophils % (Manual) 0, Band Neutrophils 0, Platelet Estimate Adequate, Platelet Morphology Normal, Hypochromasia 1+, Anisocytosis 2+, Microcytosis 1+, Sodium Level 141, Potassium Level 4.6, Chloride Level 107, Carbon Dioxide Level 27, Anion Gap 7, Blood Urea Nitrogen 11, Creatinine 0.7, Estimat Glomerular Filtration Rate > 60, Glucose Level 80, Calcium Level 8.8 Height (Feet): 5 Height (Inches): 7.00 Weight (Pounds): 154 General Appearance: alert EENT: normal ENT inspection Neck: normal alignment Cardiovascular: normal peripheral pulses, normal rate, regular rhythm Respiratory/Chest: chest wall non-tender, lungs clear, normal breath sounds Abdomen: normal bowel sounds, non tender, soft Extremities: normal inspection Edema: no edema noted Arm (L), no edema noted Arm (R), no edema noted Leg (L), no edema noted Leg (R), no edema noted Pedal (L), no edema noted Pedal (R), no edema noted Generalized Neurologic: responsive, motor weakness Skin: normal pigmentation, warm/dry JAMAAL PEREZ Oct 15, 2017 13:32
--- NOTE | 2017-10-15 14:51 | Diagnostic Imaging Report ---
Indication: Abdominal pain Technique: Continuous helical transaxial imaging of the abdomen and pelvis was obtained from the lung bases to the pubic symphysis. No intravenous contrast was administered. Coronal 2-D reformats were also obtained. Automatic Exposure Control was utilized. Total Dose length Product (DLP): 877.[address] Dose Index Volume (CTDIvol): 15.91 mGy Comparison: none Findings: Study is limited as no IV contrast was given. There is oral contrast opacifying a small stomach and gastrojejunostomy. Majority of the stomach has been resected. Cholecystectomy also noted. There is no obvious abscess or free fluid. There is no free air. There is some distention of the colon with feces. The uterus is present. The bladder is nondistended. The lung bases appear clear. In the lower pole left kidney there is a punctate 2mm stone. There is no hydronephrosis. IMPRESSION: Tiny nonobstructive calculus left kidney. Status post partial gastrectomy and gastrojejunostomy. Limited study in this regard due to the absence of intravenous contrast. Status post cholecystectomy. Moderate stool The CT scanner at [facility] is accredited by the [employer] and the scans are performed using dose optimization techniques as appropriate to a performed exam including Automatic Exposure control.
--- NOTE | 2017-10-15 16:30 | Procedure Note ---
DATE OF PROCEDURE: 10/15/2017 SURGEON: Jason Mcgill M.D. ANESTHESIOLOGIST: Garcia Ferreira M.D. REFERRING PHYSICIAN: Stephan Erazo D.O. INSTRUMENT: Olympus flexible upper endoscope. INDICATION: Abdominal pain. The procedure, risks, benefits, and possible consequences, including hemorrhage, aspiration, perforation and infection, and alternative treatments, were explained to the patient/legal guardian by Dr. aJson Mcgill and the patient/legal guardian understood and accepted these risks. DESCRIPTION OF PROCEDURE: After informed consent was obtained and the patient was adequately sedated, Olympus upper endoscope was advanced from mouth into the esophagus. Then, subsequently, the scope was advanced to gastric pouch and then to the small intestine. The patient has a history of gastric bypass surgery. There is no evidence of any ulceration at the anastomosis. Random biopsy around the gastric pouch was obtained to rule out H. pylori infection. There is no evidence of any esophagitis, esophageal ulceration, or any other pathology explaining her abdominal pain based on this upper endoscopic examination. The patient tolerated the procedure well without any complication. I want to thank Dr. Stephan Erazo for this kind referral. Jason Mcgill M.D. DR: ZOË JOB#: [id number] CC:
--- NOTE | 2017-10-15 18:01 | Pulmonology Progress Note ---
Assessment/Plan Problems: (1) Epileptic seizure, generalized (2) Anemia (3) Abdominal pain (4) hepatitis C Assessment/Plan med/surg GI f/u seizures are controlled iron iv anemia w/u in progress dc home Subjective ROS Limited/Unobtainable: No Allergies: Coded Allergies: TRAMADOL (Unverified Allergy, Unknown, 03/25/15) Uncoded Allergies: MORPHINE SULFATE (Adverse Reaction, Unknown, Hives, 10/12/17) ITCHING AND HIVES Objective Last 24 Hour Vital Signs Date Time Temp Pulse Resp B/P (MAP) Pulse Ox O2 Delivery O2 Flow Rate FiO2 10/15/17 15:45 98.6 63 18 114/77 97 10/15/17 12:33 97.5 60 19 117/78 98 10/15/17 12:00 97.5 68 19 125/78 96 Room Air 10/15/17 11:53 97.5 10/15/17 11:45 69 20 127/77 97 Room Air 10/15/17 11:30 68 19 137/80 98 Room Air 10/15/17 11:23 98.2 10/15/17 11:17 69 20 138/100 100 Room Air 10/15/17 11:13 98.2 10/15/17 11:12 68 19 145/90 100 Room Air 10/15/17 11:11 208.8 73 18 100 10/15/17 11:10 207.9 71 16 100 10/15/17 11:07 97.5 73 15 149/103 100 Room Air 10/15/17 08:00 97.5 61 19 123/73 99 10/15/17 03:41 98.1 61 18 118/68 98 Room Air 61 10/15/17 02:04 98.1 10/15/17 00:00 98.1 71 18 125/80 98 Room Air 10/14/17 20:00 97.8 62 18 125/75 97 Room Air Intake and Output 10/14/17 10/15/17 19:00 07:00 Intake Total 480 ml 390 ml Balance 480 ml 390 ml Intake Oral 480 ml 390 ml # Voids 3 2 Objective General Appearance: WD/WN, mil HEENT: normocephalic, atraumatic Neck: normal alignment, supple Respiratory/Chest: chest wall non-tender, lungs clear Cardiovascular/Chest: normal peripheral pulses, normal rate Abdomen: normal bowel sounds, non tender Genitourinary/Rectal: normal genital exam Extremities: normal range of motion, Laboratory Tests 10/15/17 07:25: White Blood Count 3.6L, Red Blood Count 4.38, Hemoglobin 9.8L, Hematocrit 33.2L , Mean Corpuscular Volume 76L, Mean Corpuscular Hemoglobin 22.4L, Mean Corpuscular Hemoglobin Concent 29.6L, Red Cell Distribution Width 22.1H, Platelet Count 357, Mean Platelet Volume 7.2, Neutrophils (%) (Auto) , Lymphocytes (%) (Auto) , Monocytes (%) (Auto) , Eosinophils (%) (Auto) , Basophils (%) (Auto) , Differential Total Cells Counted 100, Neutrophils % ( Manual) 16L, Lymphocytes % (Manual) 66H, Monocytes % (Manual) 11H, Eosinophils % (Manual) 7H, Basophils % (Manual) 0, Band Neutrophils 0, Platelet Estimate Adequate, Platelet Morphology Normal, Hypochromasia 1+, Anisocytosis 2+, Microcytosis 1+, Sodium Level 141, Potassium Level 4.6, Chloride Level 107, Carbon Dioxide Level 27, Anion Gap 7, Blood Urea Nitrogen 11, Creatinine 0.7, Estimat Glomerular Filtration Rate > 60, Glucose Level 80, Calcium Level 8.8 Current Medications Medications (Trade) Dose Ordered Sig/Sawyer Route PRN Reason Start Time Stop Time Status Last Admin Dose Admin Acetaminophen (Tylenol) 650 mg Q4H PRN ORAL fever 10/11/17 21:00 11/09/17 08:59 Acetaminophen/ Hydrocodone Bitart ([place]aton 10/325) 1 tab Q4H PRN ORAL For Pain 10/12/17 23:00 10/19/17 22:59 10/15/17 17:24 Al Hydroxide/Mg Hydroxide (Mylanta II) 30 ml Q6H PRN ORAL dyspepsia 10/11/17 21:00 11/09/17 08:59 Dextrose (Dextrose 50%) STAT PRN IV Hypoglycemia 10/11/17 21:00 11/10/17 20:59 Diphenhydramine HCl (Benadryl) 25 mg Q6H PRN ORAL Itching 10/12/17 04:00 11/11/17 03:59 10/14/17 23:53 Gabapentin (Neurontin) 300 mg Q12HR ORAL 10/11/17 21:00 11/09/17 12:29 10/14/17 20:53 Heparin Sodium (Porcine) (Heparin 5000 units/ml) 5,000 units EVERY 12 HOURS SUBQ 10/11/17 21:00 11/09/17 09:59 10/14/17 20:59 Levetiracetam (Keppra) 1,500 mg Q12HR ORAL 10/11/17 21:00 11/09/17 12:29 10/14/17 20:53 Lorazepam (Ativan 2mg/ml 1ml) 2 mg Q1H PRN IV seizures 10/11/17 21:00 10/18/17 20:59 Ondansetron HCl (Zofran) 4 mg Q6H PRN IVP Nausea & Vomiting 10/11/17 20:30 11/09/17 20:29 Polyethylene Glycol (Miralax) 17 gm HSPRN PRN ORAL Constipation 10/11/17 20:30 11/10/17 20:29 Zolpidem Tartrate (Ambien) 5 mg HSPRN PRN ORAL Insomnia 10/11/17 20:30 10/18/17 20:29 STACI ESTRADA Oct 15, 2017 18:01
--- NOTE | 2017-10-16 00:09 | General Progress Note ---
Assessment/Plan Status: unchanged Assessment/Plan 1. Leukopenia, which has been chronic, potentially related to underlying medications versus history of benign neutropenia. --> Continue to closely monitor. --> Hep C detected. Start treatment of antiretrovirals. --> Severe abd pain noted, on pain control. Avoid narcotics. --> Patient on antibiotics. 2. Anemia due to underlying chronic disease. --> Continue to closely monitor. --> Anemia workup reviewed. The patient with microcytosis. --> Pt on iron, hemoglobin has been above goal and prbc not needed today. --> Blood transfusion not required unless symptomatic or hgb <7 3. Status post seizure, seizure disorder, has been compliant. --> Continue to closely monitor. She has been seen by Neurology Service. 4. Weakness and fatigue, likely due to underlying seizure disorder as well as anemia. --> We will need to start iron if necessary with ferritin as well. 5. Deep vein thrombosis prophylaxis with heparin. Subjective Date patient seen: Oct 15, 2017 Constitutional: Denies: no symptoms, chills, diaphoresis, fever, malaise, weakness, other HEENT: Denies: no symptoms, eye pain, blurred vision, tearing, double vision, ear pain, ear discharge, nose pain, nose congestion, throat pain, throat swelling, mouth pain, mouth swelling, other Cardiovascular: Denies: no symptoms, chest pain, edema, irregular heart rate, lightheadedness, palpitations, syncope, other Respiratory: Denies: no symptoms, cough, orthopnea, shortness of breath, SOB with excertion, SOB at rest, sputum, stridor, wheezing, other Gastrointestinal/Abdominal: Denies: no symptoms, abdomen distended, abdominal pain, black stools, tarry stools, blood in stool, constipated, diarrhea, difficulty swallowing, nausea, poor appetite, poor fluid intake, rectal bleeding , vomiting, other Genitourinary: Denies: no symptoms, burning, discharge, frequency, flank pain, hematuria, incontinence, pain, urgency, other Hematologic/Lymphatic: Reports: anemia Allergies: Coded Allergies: TRAMADOL (Unverified Allergy, Unknown, 03/25/15) Uncoded Allergies: MORPHINE SULFATE (Adverse Reaction, Unknown, Hives, 10/12/17) ITCHING AND HIVES Subjective On pain management for abd pain. H/H stable. Objective Last 24 Hour Vital Signs Date Time Temp Pulse Resp B/P (MAP) Pulse Ox O2 Delivery O2 Flow Rate FiO2 10/15/17 23:33 96.4 74 141/87 97 Room Air 96 10/15/17 22:51 97.2 10/15/17 21:52 97.2 10/15/17 19:46 97.2 65 20 117/77 96 Room Air 70 10/15/17 15:45 98.6 63 18 114/77 97 10/15/17 12:33 97.5 60 19 117/78 98 10/15/17 12:00 97.5 68 19 125/78 96 Room Air 10/15/17 11:53 97.5 10/15/17 11:45 69 20 127/77 97 Room Air 10/15/17 11:30 68 19 137/80 98 Room Air 10/15/17 11:23 98.2 10/15/17 11:17 69 20 138/100 100 Room Air 10/15/17 11:13 98.2 10/15/17 11:12 68 19 145/90 100 Room Air 10/15/17 11:11 208.8 73 18 100 10/15/17 11:10 207.9 71 16 100 10/15/17 11:07 97.5 73 15 149/103 100 Room Air 10/15/17 08:00 97.5 61 19 123/73 99 10/15/17 03:41 98.1 61 18 118/68 98 Room Air 61 Intake and Output 10/15/17 10/16/17 19:00 07:00 Intake Total 610 ml 600 ml Balance 610 ml 600 ml Intake Oral 360 ml 600 ml IV Total 250 ml Laboratory Tests 10/15/17 07:25: White Blood Count 3.6L, Red Blood Count 4.38, Hemoglobin 9.8L, Hematocrit 33.2L , Mean Corpuscular Volume 76L, Mean Corpuscular Hemoglobin 22.4L, Mean Corpuscular Hemoglobin Concent 29.6L, Red Cell Distribution Width 22.1H, Platelet Count 357, Mean Platelet Volume 7.2, Neutrophils (%) (Auto) , Lymphocytes (%) (Auto) , Monocytes (%) (Auto) , Eosinophils (%) (Auto) , Basophils (%) (Auto) , Differential Total Cells Counted 100, Neutrophils % ( Manual) 16L, Lymphocytes % (Manual) 66H, Monocytes % (Manual) 11H, Eosinophils % (Manual) 7H, Basophils % (Manual) 0, Band Neutrophils 0, Platelet Estimate Adequate, Platelet Morphology Normal, Hypochromasia 1+, Anisocytosis 2+, Microcytosis 1+, Sodium Level 141, Potassium Level 4.6, Chloride Level 107, Carbon Dioxide Level 27, Anion Gap 7, Blood Urea Nitrogen 11, Creatinine 0.7, Estimat Glomerular Filtration Rate > 60, Glucose Level 80, Calcium Level 8.8 Height (Feet): 5 Height (Inches): 7.00 Weight (Pounds): 154 General Appearance: agitated Respiratory/Chest: decreased breath sounds Hector Huerta Oct 16, 2017 00:09
[2017-10-16] MEDS: HYDROcodone/Acetamin 10/325 tab ORAL PRN ×4 (02:04→15:15)
[2017-10-16 04:00] VITALS: BP 119/71
[2017-10-16 07:19] LABS: HEMATOCRIT 31.3 % (37.0-47.0); HEMOGLOBIN 9.4 G/DL (12.0-16.0); MEAN CORPUSCULAR VOLUME 76 FL (80-99); PLATELET COUNT 361 K/UL (150-450); RED CELL DISTRIBUTION WIDTH 23.5 % (11.6-14.8); WHITE BLOOD COUNT 3.1 K/UL (4.8-10.8)
[2017-10-16 07:38] LABS: ANION GAP 9 mmol/L (5-15); BLOOD UREA NITROGEN 15 mg/dL (7-18); CARBON DIOXIDE 25 MMOL/L (21-32); CHLORIDE 104 MMOL/L (98-107); CREATININE 0.7 MG/DL (0.55-1.30); SODIUM 138 MMOL/L (136-145)
[2017-10-16 08:12] VITALS: BP 109/69
[2017-10-16] MEDS: Heparin 5000 units/ml inj SUBQ SCH (08:30)
[2017-10-16 09:16] LABS: ALANINE AMINOTRANSFERASE 150 U/L (12-78); ALBUMIN 2.8 G/DL (3.4-5.0); ALKALINE PHOSPHATASE 134 U/L (46-116); ASPARTATE AMINO TRANSFERASE 164 U/L (15-37); BILIRUBIN,DIRECT < 0.1 MG/DL (0.0-0.3); BILIRUBIN,TOTAL 0.2 MG/DL (0.2-1.0)
[2017-10-16] MEDS ORDERED: ZOLPIDEM TARTRAT5 MG ORAL (10:54)
[2017-10-16] MEDS ORDERED: MIRALAX17 G2 ORAL (10:56)
[2017-10-16] MEDS ORDERED: NORCO 10-325 T1 EACH ORAL (10:58)
[2017-10-16] MEDS ORDERED: KEPPRA500 M3 ORAL (10:58)
[2017-10-16] MEDS ORDERED: BENADRYL25 MG ORAL (10:59)
[2017-10-16] MEDS ORDERED: MYLANTA II30 ML ORAL (11:01)
[2017-10-16 11:54] VITALS: BP 125/76
--- NOTE | 2017-10-16 13:38 | GI Progress Note ---
Assessment/Plan Problems: (1) hepatitis C (2) Abdominal pain ICD Codes: R10.9 - Unspecified abdominal pain SNOMED: 99600193 (3) Anemia ICD Codes: D64.9 - Anemia, unspecified SNOMED: 645588202 Status: stable Status Narrative Discussed with Dr. Mcgill. Assessment/Plan abdominal U/S reviewed >> Negative for dilated ducts hepatitis C positive >> needs outpatient tx for PCP iron deficiency >> venofer utox positive >> marijuana elevated AST >> decrease acetaminophen use s/p EGD >> There is no evidence of any esophagitis, esophageal ulceration, or any other pathology explaining her abdominal pain based on this upper endoscopic examination. okay for DC per GI standpoint adv to regular diet monitor H&H, prn transfusions bowel regime ppi pain mgmt fu labs, LFTs Subjective Gastrointestinal/Abdominal: Reports: abdominal pain Objective Last 24 Hour Vital Signs Date Time Temp Pulse Resp B/P (MAP) Pulse Ox O2 Delivery O2 Flow Rate FiO2 10/16/17 11:54 98.1 85 20 125/76 95 10/16/17 08:12 97.7 72 20 109/69 96 10/16/17 06:41 97.9 10/16/17 04:00 97.9 60 19 119/71 97 Room Air 10/16/17 03:03 96.4 10/16/17 02:04 96.4 10/15/17 23:33 96.4 74 141/87 97 Room Air 96 10/15/17 21:52 97.2 10/15/17 19:46 97.2 65 20 117/77 96 Room Air 70 10/15/17 15:45 98.6 63 18 114/77 97 Intake and Output 10/15/17 10/16/17 19:00 07:00 Intake Total 610 ml 1020 ml Balance 610 ml 1020 ml Intake Oral 360 ml 1020 ml IV Total 250 ml # Voids 3 Laboratory Tests Test 10/16/17 05:10 White Blood Count 3.1 K/UL (4.8-10.8) L Red Blood Count 4.10 M/UL (4.20-5.40) L Hemoglobin 9.4 G/DL (12.0-16.0) L Hematocrit 31.3 % (37.0-47.0) L Mean Corpuscular Volume 76 FL (80-99) L Mean Corpuscular Hemoglobin 22.9 PG (27.0-31.0) L Mean Corpuscular Hemoglobin Concent 29.9 G/DL (32.0-36.0) L Red Cell Distribution Width 23.5 % (11.6-14.8) H Platelet Count 361 K/UL (150-450) Mean Platelet Volume 7.2 FL (6.5-10.1) Neutrophils (%) (Auto) % (45.0-75.0) Lymphocytes (%) (Auto) % (20.0-45.0) Monocytes (%) (Auto) % (1.0-10.0) Eosinophils (%) (Auto) % (0.0-3.0) Basophils (%) (Auto) % (0.0-2.0) Differential Total Cells Counted 100 Neutrophils % (Manual) 20 % (45-75) L Lymphocytes % (Manual) 66 % (20-45) H Monocytes % (Manual) 10 % (1-10) Eosinophils % (Manual) 3 % (0-3) Basophils % (Manual) 1 % (0-2) Band Neutrophils 0 % (0-8) Platelet Estimate Adequate Platelet Morphology Normal Hypochromasia 2+ Anisocytosis 3+ Microcytosis 1+ Sodium Level 138 MMOL/L (136-145) Potassium Level 4.0 MMOL/L (3.5-5.1) Chloride Level 104 MMOL/L (98-107) Carbon Dioxide Level 25 MMOL/L (21-32) Anion Gap 9 mmol/L (5-15) Blood Urea Nitrogen 15 mg/dL (7-18) Creatinine 0.7 MG/DL (0.55-1.30) Estimat Glomerular Filtration Rate > 60 mL/min (>60) Glucose Level 79 MG/DL (74-106) Calcium Level 9.0 MG/DL (8.5-10.1) Total Bilirubin 0.2 MG/DL (0.2-1.0) Direct Bilirubin < 0.1 MG/DL (0.0-0.3) Aspartate Amino Transf (AST/SGOT) 164 U/L (15-37) H Alanine Aminotransferase (ALT/SGPT) 150 U/L (12-78) H Alkaline Phosphatase 134 U/L (46-116) H Total Protein 7.0 G/DL (6.4-8.2) Albumin 2.8 G/DL (3.4-5.0) L Height (Feet): 5 Height (Inches): 7.00 Weight (Pounds): 154 General Appearance: WD/WN, no apparent distress, alert Cardiovascular: normal rate Respiratory/Chest: normal breath sounds, no respiratory distress Abdominal Exam: normal bowel sounds, non tender, soft Extremities: normal range of motion, non-tender Yesica Michele N.P. Oct 16, 2017 13:38
--- NOTE | 2017-10-16 14:56 | General Progress Note ---
Assessment/Plan Problem List: (1) Abdominal pain ICD Codes: R10.9 - Unspecified abdominal pain SNOMED: 80204990 (2) Seizure ICD Codes: R56.9 - Unspecified convulsions SNOMED: 18532428 (3) Anemia ICD Codes: D64.9 - Anemia, unspecified SNOMED: 769705567 (4) Epileptic seizure, generalized ICD Codes: G40.909 - Epilepsy, unspecified, not intractable, without status epilepticus SNOMED: 29096946 (5) UTI (urinary tract infection) ICD Codes: N39.0 - Urinary tract infection, site not specified SNOMED: 78359379 (6) hepatitis C Status: stable, progressing, tolerating diet Assessment/Plan ot pt diet pain and seizure control dc home Subjective Constitutional: Reports: weakness Allergies: Coded Allergies: TRAMADOL (Unverified Allergy, Unknown, 03/25/15) Uncoded Allergies: MORPHINE SULFATE (Adverse Reaction, Unknown, Hives, 10/12/17) ITCHING AND HIVES All Systems: reviewed and negative except above Subjective no seizure feeling better Objective Last 24 Hour Vital Signs Date Time Temp Pulse Resp B/P (MAP) Pulse Ox O2 Delivery O2 Flow Rate FiO2 10/16/17 11:54 98.1 85 20 125/76 95 10/16/17 08:12 97.7 72 20 109/69 96 10/16/17 06:41 97.9 10/16/17 04:00 97.9 60 19 119/71 97 Room Air 10/16/17 03:03 96.4 10/16/17 02:04 96.4 10/15/17 23:33 96.4 74 141/87 97 Room Air 96 10/15/17 21:52 97.2 10/15/17 19:46 97.2 65 20 117/77 96 Room Air 70 10/15/17 15:45 98.6 63 18 114/77 97 Intake and Output 10/15/17 10/16/17 19:00 07:00 Intake Total 610 ml 1020 ml Balance 610 ml 1020 ml Intake Oral 360 ml 1020 ml IV Total 250 ml # Voids 3 Laboratory Tests 10/16/17 05:10: White Blood Count 3.1L, Red Blood Count 4.10L, Hemoglobin 9.4L, Hematocrit 31.3L , Mean Corpuscular Volume 76L, Mean Corpuscular Hemoglobin 22.9L, Mean Corpuscular Hemoglobin Concent 29.9L, Red Cell Distribution Width 23.5H, Platelet Count 361, Mean Platelet Volume 7.2, Neutrophils (%) (Auto) , Lymphocytes (%) (Auto) , Monocytes (%) (Auto) , Eosinophils (%) (Auto) , Basophils (%) (Auto) , Differential Total Cells Counted 100, Neutrophils % ( Manual) 20L, Lymphocytes % (Manual) 66H, Monocytes % (Manual) 10, Eosinophils % (Manual) 3, Basophils % (Manual) 1, Band Neutrophils 0, Platelet Estimate Adequate, Platelet Morphology Normal, Hypochromasia 2+, Anisocytosis 3+, Microcytosis 1+, Sodium Level 138, Potassium Level 4.0, Chloride Level 104, Carbon Dioxide Level 25, Anion Gap 9, Blood Urea Nitrogen 15, Creatinine 0.7, Estimat Glomerular Filtration Rate > 60, Glucose Level 79, Calcium Level 9.0, Total Bilirubin 0.2, Direct Bilirubin < 0.1, Aspartate Amino Transf (AST/SGOT) 164H, Alanine Aminotransferase (ALT/SGPT) 150H, Alkaline Phosphatase 134H, Total Protein 7.0, Albumin 2.8L Height (Feet): 5 Height (Inches): 7.00 Weight (Pounds): 154 General Appearance: alert EENT: normal ENT inspection Neck: normal alignment Cardiovascular: normal peripheral pulses, normal rate, regular rhythm Respiratory/Chest: chest wall non-tender, lungs clear, normal breath sounds Abdomen: normal bowel sounds, non tender, soft Extremities: normal inspection Edema: no edema noted Arm (L), no edema noted Arm (R), no edema noted Leg (L), no edema noted Leg (R), no edema noted Pedal (L), no edema noted Pedal (R), no edema noted Generalized Neurologic: responsive, motor weakness Skin: normal pigmentation, warm/dry JAMAAL PEREZ Oct 16, 2017 14:56
[2017-10-16 15:29] VITALS: BP 122/83
--- NOTE | 2017-10-16 16:18 | Pulmonology Progress Note ---
Assessment/Plan Problems: (1) Epileptic seizure, generalized (2) Anemia (3) Abdominal pain (4) hepatitis C Assessment/Plan med/surg improving seizures are controlled iron iv anemia w/u in progress dc planning in progress. Subjective ROS Limited/Unobtainable: No Allergies: Coded Allergies: TRAMADOL (Unverified Allergy, Unknown, 03/25/15) Uncoded Allergies: MORPHINE SULFATE (Adverse Reaction, Unknown, Hives, 10/12/17) ITCHING AND HIVES Objective Last 24 Hour Vital Signs Date Time Temp Pulse Resp B/P (MAP) Pulse Ox O2 Delivery O2 Flow Rate FiO2 10/16/17 15:29 98.2 90 20 122/83 97 10/16/17 11:54 98.1 85 20 125/76 95 10/16/17 08:12 97.7 72 20 109/69 96 10/16/17 06:41 97.9 10/16/17 04:00 97.9 60 19 119/71 97 Room Air 10/16/17 03:03 96.4 10/16/17 02:04 96.4 10/15/17 23:33 96.4 74 141/87 97 Room Air 96 10/15/17 21:52 97.2 10/15/17 19:46 97.2 65 20 117/77 96 Room Air 70 Intake and Output 10/15/17 10/16/17 19:00 07:00 Intake Total 610 ml 1020 ml Balance 610 ml 1020 ml Intake Oral 360 ml 1020 ml IV Total 250 ml # Voids 3 Objective General Appearance: WD/WN, mil HEENT: normocephalic, atraumatic Neck: normal alignment, supple Respiratory/Chest: chest wall non-tender, lungs clear Cardiovascular/Chest: normal peripheral pulses, normal rate Abdomen: normal bowel sounds, non tender Genitourinary/Rectal: normal genital exam Extremities: normal range of motion, Laboratory Tests 10/16/17 05:10: White Blood Count 3.1L, Red Blood Count 4.10L, Hemoglobin 9.4L, Hematocrit 31.3L , Mean Corpuscular Volume 76L, Mean Corpuscular Hemoglobin 22.9L, Mean Corpuscular Hemoglobin Concent 29.9L, Red Cell Distribution Width 23.5H, Platelet Count 361, Mean Platelet Volume 7.2, Neutrophils (%) (Auto) , Lymphocytes (%) (Auto) , Monocytes (%) (Auto) , Eosinophils (%) (Auto) , Basophils (%) (Auto) , Differential Total Cells Counted 100, Neutrophils % ( Manual) 20L, Lymphocytes % (Manual) 66H, Monocytes % (Manual) 10, Eosinophils % (Manual) 3, Basophils % (Manual) 1, Band Neutrophils 0, Platelet Estimate Adequate, Platelet Morphology Normal, Hypochromasia 2+, Anisocytosis 3+, Microcytosis 1+, Sodium Level 138, Potassium Level 4.0, Chloride Level 104, Carbon Dioxide Level 25, Anion Gap 9, Blood Urea Nitrogen 15, Creatinine 0.7, Estimat Glomerular Filtration Rate > 60, Glucose Level 79, Calcium Level 9.0, Total Bilirubin 0.2, Direct Bilirubin < 0.1, Aspartate Amino Transf (AST/SGOT) 164H, Alanine Aminotransferase (ALT/SGPT) 150H, Alkaline Phosphatase 134H, Total Protein 7.0, Albumin 2.8L Current Medications Medications (Trade) Dose Ordered Sig/Sawyer Route PRN Reason Start Time Stop Time Status Last Admin Dose Admin Acetaminophen (Tylenol) 650 mg Q4H PRN ORAL fever 10/11/17 21:00 11/09/17 08:59 Acetaminophen/ Hydrocodone Bitart ([place] 10/325) 1 tab Q4H PRN ORAL For Pain 10/12/17 23:00 10/19/17 22:59 10/16/17 15:15 Al Hydroxide/Mg Hydroxide (Mylanta II) 30 ml Q6H PRN ORAL dyspepsia 10/11/17 21:00 11/09/17 08:59 Dextrose (Dextrose 50%) STAT PRN IV Hypoglycemia 10/11/17 21:00 11/10/17 20:59 Diphenhydramine HCl (Benadryl) 25 mg Q6H PRN ORAL Itching 10/12/17 04:00 11/11/17 03:59 10/16/17 00:41 Gabapentin (Neurontin) 300 mg Q12HR ORAL 10/11/17 21:00 11/09/17 12:29 10/16/17 08:25 Heparin Sodium (Porcine) (Heparin 5000 units/ml) 5,000 units EVERY 12 HOURS SUBQ 10/11/17 21:00 11/09/17 09:59 2/13/18 08:30 Levetiracetam (Keppra) 1,500 mg Q12HR ORAL 10/11/17 21:00 11/09/17 12:29 10/16/17 08:25 Lorazepam (Ativan 2mg/ml 1ml) 2 mg Q1H PRN IV seizures 10/11/17 21:00 10/18/17 20:59 Ondansetron HCl (Zofran) 4 mg Q6H PRN IVP Nausea & Vomiting 10/11/17 20:30 11/09/17 20:29 Polyethylene Glycol (Miralax) 17 gm HSPRN PRN ORAL Constipation 10/11/17 20:30 11/10/17 20:29 Zolpidem Tartrate (Ambien) 5 mg HSPRN PRN ORAL Insomnia 10/11/17 20:30 10/18/17 20:29 STACI ESTRADA Oct 16, 2017 16:18
--- NOTE | 2017-10-17 03:41 | General Progress Note ---
Assessment/Plan Status: unchanged Assessment/Plan 1. Leukopenia, which has been chronic, potentially related to underlying medications versus history of benign neutropenia. --> Continue to closely monitor. --> Hep C detected. Start treatment of antiretrovirals. --> Severe abd pain noted, on pain control. Avoid narcotics. --> Patient on antibiotics. Has improved. 2. Anemia due to underlying chronic disease. --> Continue to closely monitor. --> Anemia workup reviewed. The patient with microcytosis. --> Pt on iron, hemoglobin has been above goal and prbc not needed today. --> Blood transfusion not required unless symptomatic or hgb <7 3. Status post seizure, seizure disorder, has been compliant. --> Continue to closely monitor. She has been seen by Neurology Service. 4. Weakness and fatigue, likely due to underlying seizure disorder as well as anemia. --> We will need to start iron if necessary with ferritin as well. 5. Deep vein thrombosis prophylaxis with heparin. Subjective Date patient seen: Oct 16, 2017 Constitutional: Denies: no symptoms, chills, diaphoresis, fever, malaise, weakness, other HEENT: Denies: no symptoms, eye pain, blurred vision, tearing, double vision, ear pain, ear discharge, nose pain, nose congestion, throat pain, throat swelling, mouth pain, mouth swelling, other Cardiovascular: Denies: no symptoms, chest pain, edema, irregular heart rate, lightheadedness, palpitations, syncope, other Respiratory: Denies: no symptoms, cough, orthopnea, shortness of breath, SOB with excertion, SOB at rest, sputum, stridor, wheezing, other Gastrointestinal/Abdominal: Denies: no symptoms, abdomen distended, abdominal pain, black stools, tarry stools, blood in stool, constipated, diarrhea, difficulty swallowing, nausea, poor appetite, poor fluid intake, rectal bleeding , vomiting, other Genitourinary: Denies: no symptoms, burning, discharge, frequency, flank pain, hematuria, incontinence, pain, urgency, other Hematologic/Lymphatic: Reports: anemia Allergies: Coded Allergies: TRAMADOL (Unverified Allergy, Unknown, 03/25/15) Uncoded Allergies: MORPHINE SULFATE (Adverse Reaction, Unknown, Hives, 10/12/17) ITCHING AND HIVES Subjective No acute events. H/H stable. Afebrile. Objective Last 24 Hour Vital Signs Date Time Temp Pulse Resp B/P (MAP) Pulse Ox O2 Delivery O2 Flow Rate FiO2 10/16/17 15:29 98.2 90 20 122/83 97 10/16/17 11:54 98.1 85 20 125/76 95 10/16/17 08:12 97.7 72 20 109/69 96 10/16/17 06:41 97.9 10/16/17 04:00 97.9 60 19 119/71 97 Room Air Intake and Output 10/16/17 10/17/17 19:00 07:00 Intake Total 720 ml Balance 720 ml Intake Oral 720 ml Laboratory Tests 10/16/17 05:10: White Blood Count 3.1L, Red Blood Count 4.10L, Hemoglobin 9.4L, Hematocrit 31.3L , Mean Corpuscular Volume 76L, Mean Corpuscular Hemoglobin 22.9L, Mean Corpuscular Hemoglobin Concent 29.9L, Red Cell Distribution Width 23.5H, Platelet Count 361, Mean Platelet Volume 7.2, Neutrophils (%) (Auto) , Lymphocytes (%) (Auto) , Monocytes (%) (Auto) , Eosinophils (%) (Auto) , Basophils (%) (Auto) , Differential Total Cells Counted 100, Neutrophils % ( Manual) 20L, Lymphocytes % (Manual) 66H, Monocytes % (Manual) 10, Eosinophils % (Manual) 3, Basophils % (Manual) 1, Band Neutrophils 0, Platelet Estimate Adequate, Platelet Morphology Normal, Hypochromasia 2+, Anisocytosis 3+, Microcytosis 1+, Sodium Level 138, Potassium Level 4.0, Chloride Level 104, Carbon Dioxide Level 25, Anion Gap 9, Blood Urea Nitrogen 15, Creatinine 0.7, Estimat Glomerular Filtration Rate > 60, Glucose Level 79, Calcium Level 9.0, Total Bilirubin 0.2, Direct Bilirubin < 0.1, Aspartate Amino Transf (AST/SGOT) 164H, Alanine Aminotransferase (ALT/SGPT) 150H, Alkaline Phosphatase 134H, Total Protein 7.0, Albumin 2.8L Height (Feet): 5 Height (Inches): 7.00 Weight (Pounds): 154 General Appearance: confused Respiratory/Chest: decreased breath sounds Abdomen: soft Hector Huerta Oct 17, 2017 03:41
--- NOTE | 2017-10-18 13:50 | Discharge Summary ---
Discharge Summary Hospital Course Date of Admission Oct 10, 2017 at 06:21 Date of Discharge Oct 16, 2017 at 16:50 Admitting Diagnosis SEIZURE/AMS HPI Judy Goldstein is a 36 year old female who was admitted on Oct 10, 2017 at 06:21 for Seizure Hospital Course [id number] Discharge Discharge Disposition Patient was discharged to Home with Home Health(06) Discharge Diagnoses: Obdulia Thomason NP Oct 18, 2017 13:50
--- NOTE | 2017-10-18 23:45 | Discharge Summary 2 SIG ---
DATE OF ADMISSION: 10/10/2017 DATE OF DISCHARGE: 10/16/2017 CONSULTANTS: 1. Jason Mcgill M.D. 2. Hector Huerta M.D. 3. Isaias Marie M.D. 4. Drew Laboy M.D. BRIEF HOSPITAL COURSE: The patient is a 36-year-old female, who lives at home, presented to ED for seizure episode. She has a known history of chronic seizure disorder since 2012. Cause of seizure was never established. She was brought to emergency room after [place] She was brought in by paramedics where on arriavl to ED, she was postictal. She has history of alcohol abuse, which resulted in hepatitis and chronic pancreatitis. She has developed chronic pain syndrome with opiate dependence and maintained on [place], oxycodone, and folate. She is on Keppra 1500 b.i.d. On evaluation at ED, CT scan of the head was normal. WBC was 2.8. Hemoglobin 8.8. Platelet was 321,000. She had a urine toxicology that was positive for opiates and marijuana. Beta HCG was negative. She was admitted for evaluation of acute seizure exacerbation. She was seen by neurologist and was maintained on Keppra 1500 b.i.d. She underwent evaluation of leukopenia and anemia. Leukopenia was chronic potentially related to underlying medication and history of benign neutropenia. Hepatitis panel was checked. Hep C was detected. She was advised to follow up for hepatitis C treatment. The patient was having abdominal pain with no active signs of nausea, vomiting, and diarrhea. She was initially started on clear liquid diet and was placed on proton pump inhibitors. She underwent EGD on 10/15/2017. Findings showed no evidence of esophagitis, esophageal ulceration, or other pathology explaining abdominal pain. The patient has history of gastric bypass surgery. Diet was eventually advanced. She was tolerating diet. Abdominal and pelvic CT scan showed nonobstructive calculus of the left kidney status post partial gastrectomy and gastrojejunostomy. She was tolerating diet well and was eventually discharged home with home health. FINAL DIAGNOSES: 1. Seizure disorder with acute exacerbation. 2. Hepatitis C. Recommend outpatient follow up for treatment. 3. Anemia of iron deficiency. 4. Leukopenia related to underlying medication. 5. Benign neutropenia. 6. Elevated liver transaminases. 7. Positive marijuana use. DISPOSITION: The patient was discharged home with home health. DISCHARGE MEDICATIONS: Refer to medication list. DISCHARGE INSTRUCTIONS: Follow up with PCP in a week. Stephan Erazo D.O. I have been assigned to dictate discharge summary on this account and I was not involved in the patient's management. Obdulia Thomason N.P. DR: DULCE JOB#: [id number] CC: TATI
== END 2017-10-16 16:50 | disposition home health service (06) | DRG 53 ==
LOC: EDBD 23:49 → EMR 10-10 00:16 → 2E 10-10 06:21 → EDBEDREQ 10-10 06:52 → 2E 10-10 15:34 → 4W 10-11 21:30
PROC: 0DB68ZX Excision of Stomach, Via Natural or Artificial Opening Endoscopic, Diagnostic (ICD-10-PCS; principal; 2017-10-15 10:45)
DX: G40.409 Other generalized epilepsy and epileptic syndromes, not intractable, without status epilepticus (principal); D70.2 Other drug-induced agranulocytosis; D70.8 Other neutropenia; K86.1 Other chronic pancreatitis; F11.20 Opioid dependence, uncomplicated; B19.20 Unspecified viral hepatitis C without hepatic coma; D50.9 Iron deficiency anemia, unspecified; F12.90 Cannabis use, unspecified, uncomplicated; D63.8 Anemia in other chronic diseases classified elsewhere; R10.9 Unspecified abdominal pain; Z88.6 Allergy status to analgesic agent; G89.4 Chronic pain syndrome; R74.8 Abnormal levels of other serum enzymes; F17.200 Nicotine dependence, unspecified, uncomplicated; Z98.84 Bariatric surgery status; F10.21 Alcohol dependence, in remission
CPT/HCPCS: 36415; 70450; 74176; 76700; 80048; 80053; 80076; 80299; 80307; 80329; 81003; 81025; 82378; 82607; 82728; 82746; 82962; 83020; 83540; 83550; 83615; 83921; 84238; 84443; 85007; 85025; 85044; 85060; 85610; 85651; 85730; 86703; 86705; 86709; 86803; 87340; 93005; 94003; 94150; 99285; J2250; J2405; J8499

== ENCOUNTER 2017-10-21 22:18 | Emergency (ER) | payer OTHER ==
[~2017-10-21] VITALS: Ht 170.2 cm; Wt 69.4 kg
[~2017-10-21 22:18] MED LIST changes: +ACETAMINOPHEN-1 EAC1 ORAL; +BENADRYL25 MG ORAL; +KEPPRA500 M3 ORAL; +KEPPRA500 M4 ORAL; +MIRALAX17 G2 ORAL; +MYLANTA II30 ML ORAL; +NEURONTIN300 MG ORAL; +NORCO 10-325 T1 EACH ORAL; +ZOLPIDEM TARTRAT5 MG ORAL
[2017-10-21 22:40] VITALS: BP 124/87
[2017-10-21] MEDS ORDERED: LORazepam 1mg tab ORAL ONE (23:00)
--- NOTE | 2017-10-21 23:10 | Emergency Room Report ---
History of Present Illness General Chief Complaint: Abdominal Pain Source: Patient Present Illness HPI 36YOF walk-in with nausea/vomiting and diarrhea for 1 day Denies associated fever/chills, urinary complaints States she tried zantac, pepcid, maalox at home and "nothing works." States "I have chronic pancreatitis" from previous ETOH abuse But denies recent ETOH abuse S/p distant cholecystectomy, gastric bypass Was just admitted for seizres - states she was told to see pain speech and language specialist , but hasnt yet States "they gave me norco" when she was admitted but then states she cant have tylenol "because of the liver." Allergies: Coded Allergies: ACETAMINOPHEN (Verified Allergy, Unknown, 10/21/17) KETOROLAC (Verified Allergy, Unknown, 10/21/17) NSAIDS (NON-STEROIDAL ANTI-INFLAMMA (Verified Allergy, Unknown, 10/21/17) TRAMADOL (Unverified Allergy, Unknown, 03/25/15) Uncoded Allergies: MORPHINE SULFATE (Adverse Reaction, Unknown, Hives, 10/12/17) ITCHING AND HIVES Patient History Past Medical History: see triage record, old chart reviewed Past Surgical History: other - see hpi Pertinent Family History: none Social History: Denies: smoking, alcohol use, drug use Last Menstrual Period: oct 18 Now: No : 1 Immunizations: UTD Reviewed Nursing Documentation: PMH: Agreed, PSxH: Agreed Nursing Documentation-PMH Hx Cardiac Problems: No Hx Cancer: No Hx Gastrointestinal Problems: Yes - Pancreatitis, gastritis, "liver problem" Hx Neurological Problems: Yes Hx Seizures: Yes Review of Systems All Other Systems: negative except mentioned in HPI Physical Exam Vital Signs Date Time Temp Pulse Resp B/P (MAP) Pulse Ox O2 Delivery O2 Flow Rate FiO2 10/21/17 22:25 98.0 84 18 124/87 98 Room Air 98.1 Sp02 EP Interpretation: reviewed, normal General Appearance: normal inspection, well appearing, no apparent distress, alert, GCS 15, non-toxic, other - Very comfortable on stretcher, playing on IPad Head: normocephalic, atraumatic Eyes: bilateral eye PERRL, bilateral eye EOMI ENT: normal ENT inspection, hearing grossly normal, normal pharynx, no angioedema, normal voice, TMs + canals normal, uvula midline, moist mucus membranes Neck: normal inspection, full range of motion, supple, thyroid normal, no meningismus, no bony tend Respiratory: normal inspection, lungs clear, normal breath sounds, no rhonchi, no respiratory distress, no retraction, no accessory muscle use, no wheezing, speaking full sentences Cardiovascular #1: regular rate, rhythm, no edema, no JVD, normal capillary refill Gastrointestinal: normal inspection, normal bowel sounds, non tender, soft, no mass, no peritonitis, non-distended, no guarding, no hernia, no pulsatile mass, other - Writhing on abd exam not non peritoneal Genitourinary: no CVA tenderness Musculoskeletal: normal inspection, back normal, normal range of motion, no calf tenderness, pelvis stable, Sampson's Sign negative Neurologic: normal inspection, alert, oriented x3, responsive, head cager III-XII nml as tested, motor strength/tone normal, cerebellar normal, normal gait, speech normal Psychiatric: normal inspection, judgement/insight normal, mood/affect normal, no suicidal/homicidal ideation, no delusions Skin: normal inspection, normal color, no rash Lymphatic: normal inspection, no adenopathy Medical Decision Making Diagnostic Impression: Primary Impression: Viral gastroenteritis ER Course VSS, afebrile Non peritoneal abdomen on serial exam Given n, v, d, more likely gastroenteritis Strong concern for narcotic seeking behavior Gave ativan low dose orally as is allergic or cant tolerate any other known pain med we have available here Advised to followup with PMD for pain mgmt referral ER course: Patient has remained stable during ED stay. Disposition: Patient is to be discharged to home. Patient is instructed to follow up with their primary care doctor within 5 days. Strict return precautions discussed with patient such as fever, chills, worsening/severe pain, nausea, vomiting, which may indicate severe illness. Patient verbalizes understanding and agrees with plan. Please note that this Emergency Department Report was dictated using [employer]iter[employer]intendent compressor stations technology software, occasionally this can lead to erroneous entry secondary to interpretation by the dictation equipment Last Vital Signs Date Time Temp Pulse Resp B/P (MAP) Pulse Ox O2 Delivery O2 Flow Rate FiO2 10/21/17 22:25 98.0 84 18 124/87 98 Room Air 98.1 Status: improved Disposition: HOME, SELF-CARE Condition: Improved Patient Instructions: Viral Gastroenteritis, Adult, [id number] Additional Instructions: - Ask your primary doctor Dr Erazo for pain mgmt referral JAYSHREE CROCKETT M.D. Oct 21, 2017 23:10
[2017-10-21 23:20] VITALS: BP 124/87
== END 2017-10-21 23:20 | disposition home or self-care (01) ==
LOC: EMR 23:10
DX: A08.4 Viral intestinal infection, unspecified (principal); Z88.6 Allergy status to analgesic agent; Z88.8 Allergy status to other drugs, medicaments and biological substances
CPT/HCPCS: 99283

== ENCOUNTER 2017-11-25 10:43 | Emergency (ER) | payer MEDICAID, OTHER ==
[~2017-11-25] VITALS: Ht 170.2 cm; Wt 69.4 kg
[2017-11-25] MEDS ORDERED: Acetaminophen 500mg (ES) tab ORAL ONE (11:00)
[2017-11-25] MEDS ORDERED: Norco 5mg/325mg tab ORAL ONE (11:00)
[2017-11-25] MEDS ORDERED: NORCO 5-325 TA1 EACH ORAL (12:31)
[2017-11-25 13:10] VITALS: BP 140/82
--- NOTE | 2017-11-25 15:08 | Emergency Room Report ---
History of Present Illness General Chief Complaint: Lower Extremity Injury Source: Patient Present Illness HPI Patient is a 37-year-old female who presented after increased great toe pain. Patient reported having prior surgery many years ago to her bunion. She reported having no recent trauma. She noticed increased pain. Patient states that she has not had a prior history of gout. History of pancreatitis. She denies any abdominal pain at this time. She reports having increased pain to her foot. This was not relieved by NSAIDs. Allergies: Coded Allergies: KETOROLAC (Verified Allergy, Unknown, 10/21/17) NSAIDS (NON-STEROIDAL ANTI-INFLAMMA (Verified Allergy, Unknown, 10/21/17) TRAMADOL (Unverified Allergy, Unknown, 03/25/15) Uncoded Allergies: MORPHINE SULFATE (Adverse Reaction, Unknown, Hives, 10/12/17) ITCHING AND HIVES Patient History Past Medical History: see triage record Last Menstrual Period: 11/16/2017 Reviewed Nursing Documentation: PMH: Agreed; PSxH: Agreed Nursing Documentation-PMH Past Medical History: No History, Except For Hx Cardiac Problems: No Hx Hypertension: No Hx Pacemaker: No Hx Asthma: No Hx COPD: No Hx Diabetes: No Hx Cancer: No Hx Gastrointestinal Problems: Yes - Pancreatitis, gastritis, "liver problem" Hx Dialysis: No History Of Psychiatric Problem: No Hx Neurological Problems: Yes Hx Cerebrovascular Accident: No Hx Seizures: Yes Review of Systems All Other Systems: negative except mentioned in HPI Physical Exam Vital Signs Date Time Temp Pulse Resp B/P (MAP) Pulse Ox O2 Delivery O2 Flow Rate FiO2 11/25/17 10:47 98.0 87 16 146/87 94 Room Air 98.1 General Appearance: well appearing, no apparent distress, alert, GCS 15 Head: normocephalic, atraumatic ENT: hearing grossly normal, normal voice Neck: full range of motion, supple Respiratory: normal inspection, no respiratory distress, speaking full sentences Cardiovascular #1: normal inspection Gastrointestinal: normal inspection, normal bowel sounds, soft Musculoskeletal: normal inspection, digits/nails normal, no calf tenderness Neurologic: normal inspection, alert, oriented x3, responsive, peer counselor III-XII nml as tested, normal gait Psychiatric: mood/affect normal Skin: no rash Medical Decision Making Diagnostic Impression: Primary Impression: Toe fracture, right ER Course Patient presented for toe pain. Differential diagnosis included wasn't limited to osteomyelitis, fracture, ingrown toenail, contusion, gouty arthritis among others. The patient was noted to have fracture on x-ray imaging read by radiology. The patient is advised to follow up with primary care doctor in 1- 2 days. Patient is advised to return if any worsening condition or if any changes in status that are concerning. This report is dictated with [employer] manager icu software which may occasionally lead to discrepancies related to use of this software. Last Vital Signs Date Time Temp Pulse Resp B/P (MAP) Pulse Ox O2 Delivery O2 Flow Rate FiO2 11/25/17 13:10 98.0 80 16 140/82 96 Room Air 98.0 Status: improved Disposition: HOME, SELF-CARE Condition: Stable Scripts Hydrocodone Bit/Acetaminophen 5-325* ([place] 5-325*) 1 Each Tablet 1 TAB ORAL Q6H PRN for For Pain, #20 TAB 0 Refills Prov: Anson Rajput 11/25/17 Patient Instructions: Toe Fracture Anson Rajput Nov 25, 2017 15:08
--- NOTE | 2017-11-26 08:40 | Diagnostic Imaging Report ---
Indication: Pain Technique: 3 views right foot Comparison: none Findings: Patient is status post osteotomy of the first metatarsal and probable bunionectomy. There is an oblique fracture of the first proximal phalanx there is hallux valgus and metatarsus adductus. There is slight hammertoe deformity of the second through fifth digits. The joint spaces are preserved. Impression: Positive for first proximal phalangeal fracture. Postsurgical changes, as described This agrees with the preliminary interpretation provided overnight by [facility] service.
== END 2017-11-25 13:14 | disposition home or self-care (01) ==
LOC: EMR 11:03
DX: S92.411A Displaced fracture of proximal phalanx of right great toe, initial encounter for closed fracture (principal); Z88.6 Allergy status to analgesic agent; X58.XXXA Exposure to other specified factors, initial encounter; Y92.9 Unspecified place or not applicable
CPT/HCPCS: 73630; 99283; J7512

== ENCOUNTER 2019-04-25 20:25 | Emergency (ER) | payer MEDICAID, OTHER ==
[~2019-04-25] VITALS: Ht 175.3 cm; Wt 81.6 kg
[~2019-04-25 20:25] MED LIST changes: +NORCO 5-325 TA1 EACH ORAL
[2019-04-25] MEDS ORDERED: Haloperidol 5mg/ml Inj IM ONE ×2 (20:45→23:45)
--- NOTE | 2019-04-25 20:45 | NUR ---
ED Nurse Note: Patient broght in by ambulance from home c/o delirium accompanied by agitation, EMS states that at time of arrival at her house patient was blabbing nonstop, patient was given versed en route. at time of arrival to hospital patient presents with increased agitation. unable to communicate with staff however follows orders. IV startedo n left forearm 22 gauge, will wait for further orders
--- NOTE | 2019-04-25 20:46 | NUR ---
ED Nurse Note: Patient presents with bruising on left knee, unable to know how it happened, patient is incoherent
--- NOTE | 2019-04-25 20:56 | Emergency Room Report ---
History of Present Illness General Chief Complaint: Altered Level of Consciousness Present Illness HPI Disclaimer: Please note that this report is being documented using DRAGON technology. This can lead to erroneous entry secondary to incorrect interpretation by the dictating instrument. HPI: 38-year-old female with a history of seizure disorder, substance abuse, alcohol abuse, pancreatitis, hepatitis presents for evaluation of altered mental status. According to EMS report, the patient was found at home behaving erratically by her sister. Found her clapping and speaking nonsensically. Unknown with a last known normal time. She was given 5 mg intramuscular Versed on route by EMS for agitation. The patient can provide no specific history. PMH: Seizure disorder, substance abuse PSH: Unknown Allergies: Toradol, morphine, NSAIDs listed in chart Social Hx: Unknown, prior history of substance abuse (Deangelo Varghese MD) Allergies: Coded Allergies: KETOROLAC (Verified Allergy, Unknown, 10/21/17) NSAIDS (NON-STEROIDAL ANTI-INFLAMMA (Verified Allergy, Unknown, 10/21/17) TRAMADOL (Unverified Allergy, Unknown, 03/25/15) Uncoded Allergies: MORPHINE SULFATE (Adverse Reaction, Unknown, Hives, 10/12/17) ITCHING AND HIVES Patient History Last Menstrual Period: na (Deangelo Varghese MD) Nursing Documentation-PMH Past Medical History Deferred: Patient Unconscious Past Medical History: No History, Except For Hx Cardiac Problems: No Hx Hypertension: No Hx Pacemaker: No Hx Asthma: No Hx COPD: No Hx Diabetes: No Hx Cancer: No Hx Gastrointestinal Problems: Yes - Pancreatitis, gastritis, "liver problem" Hx Dialysis: No Hx Neurological Problems: Yes Hx Cerebrovascular Accident: No Hx Seizures: Yes (Deangelo Varghese MD) Review of Systems All Other Systems: limited - Limited due to clinical condition (Deangelo Varghese MD) Physical Exam Vital Signs Date Time Temp Pulse Resp B/P (MAP) Pulse Ox O2 Delivery O2 Flow Rate FiO2 04/25/19 20:21 98.8 84 20 182/99 (126) 99 Room Air General: Awake. Yelling in the room. HEENT: NC/AT. EOMI. anicteric sclera. Neck: Supple, trachea midline Chest Wall: No tenderness, no deformity Cardiovascular: RRR. S1 and S2 normal. Resp: Normal work of breathing. No cough, wheezing or crackles appreciated Abdomen: Abdomen is soft, nondistended. Nontender Skin: Intact. No abrasions, laceration or rash over the exposed skin MSK: Normal tone and bulk. Moving all extremities. No obvious deformity. Neuro: Awake. Disoriented. Cannot answer questions. Repeating "Sandor "repeatedly. Rocking back and forth. Moving all extremities. Striking out at staff, combative. (Deangelo Varghese MD) Procedures Critical Care Time Critical Care Time Total critical care time: Approximately 31 minutes Due to a high probability of clinically significant, life threatening deterioration, the patient required the highest level of preparedness to intervene emergently and I personally spent this critical care time directly and personally managing the patient. This critical care time included obtaining a history, examining the patient, pulse oximetry, ordering and reviewing studies , ordering treatments, evaluating response to treatment and updating management plan as needed, frequent reassessment and discussion with other providers as well as arranging for ultimate disposition. This critical to care time was performed to assess and manage the high probability of life-threatening deterioration that could result in multiorgan failure. This critical care time is separate from the separately billable procedures and treating other patients. (Deangelo Varghese MD) Medical Decision Making Restraint Attestation I, Deangelo Varghese MD, have personally evaluated this patient. Laboratory tests have been reviewed and addressed accordingly. The patient is deemed to present a danger to themselves and/or others. This is based on the exam, history ( provided by patient, EMS/[facility] and/or family) and observed or reported behavior. Attempts for non-invasive measures have been considered and/or attempted, however, have been futile. It is in the best interest of the nursing staff, the patient, and others involved in this patient's care that behavioral restraints be applied. Patient evaluation reveals the following: Delirium, combativeness, danger to staff (Deangelo Varghese MD) Diagnostic Impression: Primary Impression: Delirium Additional Impressions: Altered mental status Qualified Codes: R41.82 - Altered mental status, unspecified Polysubstance abuse ER Course 38-year-old female history of seizure disorder, substance abuse, hepatitis presents for evaluation of altered mental status after being found by her sister earlier today. Unknown last known normal. Differential is broad and includes psychiatric disorder, decompensation, medication side effect, substance abuse, head trauma. Will obtain CT scan of the head and broad metabolic, infectious and tox work-up. Patient requires sedation and was given 5 mg Haldol on arrival. Laboratory Tests Test 04/25/19 22:30 04/25/19 23:45 White Blood Count 8.5 K/UL (4.8-10.8) Red Blood Count 3.66 M/UL (4.20-5.40) L Hemoglobin 8.4 G/DL (12.0-16.0) L Hematocrit 27.9 % (37.0-47.0) L Mean Corpuscular Volume 76 FL (80-99) L Mean Corpuscular Hemoglobin 23.1 PG (27.0-31.0) L Mean Corpuscular Hemoglobin Concent 30.2 G/DL (32.0-36.0) L Red Cell Distribution Width 24.5 % (11.6-14.8) H Platelet Count 356 K/UL (150-450) Mean Platelet Volume 6.2 FL (6.5-10.1) L Neutrophils (%) (Auto) 83.6 % (45.0-75.0) H Lymphocytes (%) (Auto) 9.6 % (20.0-45.0) L Monocytes (%) (Auto) 6.0 % (1.0-10.0) Eosinophils (%) (Auto) 0.3 % (0.0-3.0) Basophils (%) (Auto) 0.5 % (0.0-2.0) Urine Color Yellow Urine Appearance Clear Urine pH 7 (4.5-8.0) Urine Specific [place] 1.010 (1.005-1.035) Urine Protein Negative (NEGATIVE) Urine Glucose (UA) Negative (NEGATIVE) Urine Ketones 1+ (NEGATIVE) H Urine Blood Negative (NEGATIVE) Urine Nitrite Negative (NEGATIVE) Urine Bilirubin Negative (NEGATIVE) Urine Urobilinogen 1 MG/DL (0.0-1.0) H Urine Leukocyte Esterase Negative (NEGATIVE) Urine HCG, Qualitative Negative (NEGATIVE) Sodium Level 143 MMOL/L (136-145) Potassium Level 3.3 MMOL/L (3.5-5.1) L Chloride Level 109 MMOL/L (98-107) H Carbon Dioxide Level 26 MMOL/L (21-32) Anion Gap 8 mmol/L (5-15) Blood Urea Nitrogen 5 mg/dL (7-18) L Creatinine 0.8 MG/DL (0.55-1.30) Estimate Glomerular Filtration Rate > 60 mL/min (>60) Glucose Level 126 MG/DL (74-106) H Lactic Acid Level 2.30 mmol/L (0.4-2.0) H 1.30 mmol/L (0.66-2.22) Calcium Level 8.6 MG/DL (8.5-10.1) Total Bilirubin 0.3 MG/DL (0.2-1.0) Aspartate Amino Transferase (AST) 65 U/L (15-37) H Alanine Aminotransferase (ALT) 43 U/L (12-78) Alkaline Phosphatase 92 U/L (46-116) Total Creatine Kinase 258 U/L (26-308) Creatine Kinase MB 1.2 NG/ML (0.0-3.6) Creatine Kinase MB Relative Index 0.4 Troponin I 0.038 ng/mL (0.000-0.056) Total Protein 7.6 G/DL (6.4-8.2) Albumin 3.2 G/DL (3.4-5.0) L Globulin 4.4 g/dL Albumin/Globulin Ratio 0.7 (1.0-2.7) L Thyroid Stimulating Hormone (TSH) 1.039 uiU/mL (0.358-3.740) Salicylates Level 1.6 ug/mL (2.8-20) L Urine Opiates Screen Positive (NEGATIVE) H Acetaminophen Level < 2 MCG/ML (10-30) L Urine Barbiturates Screen Negative (NEGATIVE) Phencyclidine (PCP) Screen Negative (NEGATIVE) Urine Amphetamines Screen Negative (NEGATIVE) Urine Benzodiazepines Screen Positive (NEGATIVE) H Urine Cocaine Screen Positive (NEGATIVE) H Urine Marijuana (THC) Screen Positive (NEGATIVE) H Serum Alcohol < 3 mg/dL (Deangelo Varghese MD) ER Course Signout received by Dr. Varghese Patient will be transferred to [facility], patient was accepted by Dr. Gambino [phone] During the patient's stay patient required multiple amounts of sedate of medications, and multiple re-evaluations due to her combative nature, patient with multiple polysubstances on board Patient was transferred successfully Laboratory Tests Test 04/25/19 22:30 04/25/19 23:45 White Blood Count 8.5 K/UL (4.8-10.8) Red Blood Count 3.66 M/UL (4.20-5.40) L Hemoglobin 8.4 G/DL (12.0-16.0) L Hematocrit 27.9 % (37.0-47.0) L Mean Corpuscular Volume 76 FL (80-99) L Mean Corpuscular Hemoglobin 23.1 PG (27.0-31.0) L Mean Corpuscular Hemoglobin Concent 30.2 G/DL (32.0-36.0) L Red Cell Distribution Width 24.5 % (11.6-14.8) H Platelet Count 356 K/UL (150-450) Mean Platelet Volume 6.2 FL (6.5-10.1) L Neutrophils (%) (Auto) 83.6 % (45.0-75.0) H Lymphocytes (%) (Auto) 9.6 % (20.0-45.0) L Monocytes (%) (Auto) 6.0 % (1.0-10.0) Eosinophils (%) (Auto) 0.3 % (0.0-3.0) Basophils (%) (Auto) 0.5 % (0.0-2.0) Urine Color Yellow Urine Appearance Clear Urine pH 7 (4.5-8.0) Urine Specific [place] 1.010 (1.005-1.035) Urine Protein Negative (NEGATIVE) Urine Glucose (UA) Negative (NEGATIVE) Urine Ketones 1+ (NEGATIVE) H Urine Blood Negative (NEGATIVE) Urine Nitrite Negative (NEGATIVE) Urine Bilirubin Negative (NEGATIVE) Urine Urobilinogen 1 MG/DL (0.0-1.0) H Urine Leukocyte Esterase Negative (NEGATIVE) Urine HCG, Qualitative Negative (NEGATIVE) Sodium Level 143 MMOL/L (136-145) Potassium Level 3.3 MMOL/L (3.5-5.1) L Chloride Level 109 MMOL/L (98-107) H Carbon Dioxide Level 26 MMOL/L (21-32) Anion Gap 8 mmol/L (5-15) Blood Urea Nitrogen 5 mg/dL (7-18) L Creatinine 0.8 MG/DL (0.55-1.30) Estimate Glomerular Filtration Rate > 60 mL/min (>60) Glucose Level 126 MG/DL (74-106) H Lactic Acid Level 2.30 mmol/L (0.4-2.0) H 1.30 mmol/L (0.66-2.22) Calcium Level 8.6 MG/DL (8.5-10.1) Total Bilirubin 0.3 MG/DL (0.2-1.0) Aspartate Amino Transferase (AST) 65 U/L (15-37) H Alanine Aminotransferase (ALT) 43 U/L (12-78) Alkaline Phosphatase 92 U/L (46-116) Total Creatine Kinase 258 U/L (26-308) Creatine Kinase MB 1.2 NG/ML (0.0-3.6) Creatine Kinase MB Relative Index 0.4 Troponin I 0.038 ng/mL (0.000-0.056) Total Protein 7.6 G/DL (6.4-8.2) Albumin 3.2 G/DL (3.4-5.0) L Globulin 4.4 g/dL Albumin/Globulin Ratio 0.7 (1.0-2.7) L Thyroid Stimulating Hormone (TSH) 1.039 uiU/mL (0.358-3.740) Salicylates Level 1.6 ug/mL (2.8-20) L Urine Opiates Screen Positive (NEGATIVE) H Acetaminophen Level < 2 MCG/ML (10-30) L Urine Barbiturates Screen Negative (NEGATIVE) Phencyclidine (PCP) Screen Negative (NEGATIVE) Urine Amphetamines Screen Negative (NEGATIVE) Urine Benzodiazepines Screen Positive (NEGATIVE) H Urine Cocaine Screen Positive (NEGATIVE) H Urine Marijuana (THC) Screen Positive (NEGATIVE) H Serum Alcohol < 3 mg/dL (Isaac Kebede MD) EKG Diagnostic Results EKG Time: 22:18 Rate: normal Rhythm: NSR ST Segments: no acute changes Other Impression Normal axis, normal intervals. Sinus rhythm. Overall nonischemic. (Deangelo Varghese MD) Rhythm Strip Diag. Results Rhythm Strip Time: 22:18 EP Interpretation: yes Rate: 80s Rhythm: NSR (Deangelo Varghese MD) Reevaluation Time: 23:00 Last Vital Signs Date Time Temp Pulse Resp B/P (MAP) Pulse Ox O2 Delivery O2 Flow Rate FiO2 04/25/19 20:21 98.8 84 20 182/99 (126) 99 Room Air Reevaluation Impression Patient education was significantly reduced after receiving Haldol and Ativan. CT scan of the head was unremarkable. Labs show Anemia which is baseline for the patient, slight hypokalemia with a potassium of 3.3, normal renal function with a creatinine of 0.8, elevated lactate at 2.3 but the patient is receiving IV fluids. Urinalysis does not suggest an acute urinary tract infection. Tox screen however is positive for opiates, benzodiazepines, cocaine and THC. This may all be related to his substance abuse and the patient will be allowed to metabolize in the emergency department however if there is no significant improvement she may be admitted for encephalopathy/AMS. Will sign out to the oncoming provider. She is in stable condition. (Deangelo Varghese MD) Disposition: XFER SHT-TRM HOSP Condition: Stable Signed Out To: Dr. Kebede (Deangelo Varghese MD) Deangelo Varghese MD Apr 25, 2019 20:56 Isaac Kebede MD Apr 26, 2019 02:48
[2019-04-25] MEDS ORDERED: LORazepam Inj 2mg/ml 1ml IV ONE (21:15)
--- NOTE | 2019-04-25 22:30 | NUR ---
Edwige called from [facility], brief history given. Edwige left her number to call when all labs are baqck([phone])
--- NOTE | 2019-04-25 22:43 | NUR ---
ED Nurse Note: Patient still agitated in bed
[2019-04-25 22:51] LABS: APPEARANCE,URINE CLEAR; BILIRUBIN, URINE NEGATIVE (NEGATIVE); GLUCOSE, URINE (UA) NEGATIVE (NEGATIVE); KETONES,URINE 1+ (NEGATIVE); LEUKOCYTE ESTERASE ,URINE NEGATIVE (NEGATIVE); NITRITE,URINE NEGATIVE (NEGATIVE); PH,URINE 7 (4.5-8.0); PROTEIN,URINE NEGATIVE (NEGATIVE); UROBILINOGEN,URINE 1 MG/DL (0.0-1.0)
--- NOTE | 2019-04-25 22:52 | Diagnostic Imaging Report ---
EXAM: CT Head Without Intravenous Contrast CLINICAL HISTORY: AMS TECHNIQUE: Axial computed tomography images of the head/brain without intravenous contrast. CTDI is 70.4 mGy and DLP is 1418 mGy-cm. One or more of the following dose reduction techniques were used: automated exposure control, adjustment of the mA and/or kV according to patient size, use of iterative reconstruction technique. COMPARISON: 11/07/17 FINDINGS: Brain: Unremarkable. No hemorrhage. No significant white matter disease. No edema. Ventricles: Unremarkable. No ventriculomegaly. Bones/joints: Unremarkable. No acute fracture. Soft tissues: Unremarkable. Sinuses: Unremarkable as visualized. No acute sinusitis. Mastoid air cells: Unremarkable as visualized. No mastoid effusion. IMPRESSION: Unremarkable CT brain, no change from prior study
[2019-04-25 22:54] LABS: COLOR,URINE YELLOW
[2019-04-25 22:57] LABS: BASOPHILS % (AUTO) 0.5 % (0.0-2.0); EOSINOPHILS % (AUTO) 0.3 % (0.0-3.0); HEMATOCRIT 27.9 % (37.0-47.0); HEMOGLOBIN 8.4 G/DL (12.0-16.0); LYMPHOCYTES % (AUTO) 9.6 % (20.0-45.0); MEAN CORPUSCULAR VOLUME 76 FL (80-99); NEUTROPHILS % (AUTO) 83.6 % (45.0-75.0); PLATELET COUNT 356 K/UL (150-450); RED BLOOD COUNT 3.66 M/UL (4.20-5.40); RED CELL DISTRIBUTION WIDTH 24.5 % (11.6-14.8); WHITE BLOOD COUNT 8.5 K/UL (4.8-10.8)
[2019-04-25 23:13] LABS: ANION GAP 8 mmol/L (5-15); BLOOD UREA NITROGEN 5 mg/dL (7-18); CALCIUM 8.6 MG/DL (8.5-10.1); CARBON DIOXIDE 26 MMOL/L (21-32); CHLORIDE 109 MMOL/L (98-107); CREATININE 0.8 MG/DL (0.55-1.30); POTASSIUM 3.3 MMOL/L (3.5-5.1); SODIUM 143 MMOL/L (136-145)
[2019-04-25 23:26] LABS: ALANINE AMINOTRANSFERASE 43 U/L (12-78); ALBUMIN 3.2 G/DL (3.4-5.0); ALBUMIN/GLOBULIN RATIO 0.7 (1.0-2.7); ALKALINE PHOSPHATASE 92 U/L (46-116); ASPARTATE AMINO TRANSFERASE 65 U/L (15-37); BILIRUBIN,TOTAL 0.3 MG/DL (0.2-1.0); CKMB 1.2 NG/ML (0.0-3.6); CREATINE KINASE 258 U/L (26-308)
[2019-04-25] MEDS ORDERED: DiphenhydrAMINE 50mg/ml Inj IM ONE (23:45)
[2019-04-25] MEDS ORDERED: LORazepam Inj 2mg/ml 1ml IM ONE (23:45)
--- NOTE | 2019-04-25 23:57 | NUR ---
Spoke with Maura at [facility] ). Will have a doctor from [facility] to call us back.
[2019-04-26 00:10] VITALS: BP 141/84
--- NOTE | 2019-04-26 00:39 | NUR ---
spoke with DR YUSUF, who accepted the transfer.
--- NOTE | 2019-04-26 00:43 | NUR ---
ED Nurse Note: Patient sleeping calmly in bed now. follows orders, has episodes of increased agitation but is able to control self.
[2019-04-26 01:29] VITALS: BP 152/88
--- NOTE | 2019-04-26 01:34 | NUR ---
ED Nurse Note: Gave report to GABBIE Francisco
--- NOTE | 2019-04-26 02:10 | NUR ---
ED Nurse Note: Patient sleeping calmy at bedside
[2019-04-26 02:37] VITALS: BP 162/93
--- NOTE | 2019-04-26 02:40 | NUR ---
ED Nurse Note: Patient is being transferred to [facility], patient is accompanied by ambulance personnel.
--- NOTE | 2019-04-27 12:50 | Cardiology Report ---
APPROVED REPORT EKG Measurement Heart [id number] Normal sinus rhythm Nonspecific ST abnormality Abnormal ECG
== END 2019-04-26 02:40 | disposition short-term general hospital (02) ==
LOC: EDBD 20:25 → EMR 20:36
DX: R41.0 Disorientation, unspecified (principal); F19.10 Other psychoactive substance abuse, uncomplicated; G40.909 Epilepsy, unspecified, not intractable, without status epilepticus; Z88.6 Allergy status to analgesic agent; Z88.8 Allergy status to other drugs, medicaments and biological substances; E87.6 Hypokalemia; D64.9 Anemia, unspecified
CPT/HCPCS: 36415; 70450; 80053; 80307; 80329; 81003; 81025; 82550; 82553; 83605; 84443; 84484; 85025; 93005; 96372; 96374; 99291; J1630